=== PATIENT | male | born 1945 | race Two or more races ===

== ENCOUNTER → 2017-03-26 | Day surgery (SDC) | payer OTHER ==
[2017-03-24 16:45] LABS: Urine RBC None Seen /hpf (0 - 3)
[2017-03-24 17:14] LABS: Basophils # (auto) 0 uL; Basophils % (auto) 0.4 % (0.0-2.0); Eosinophils # (auto) 0.2 uL; Eosinophils % (auto) 2.7 % (0.0-7.0); Hematocrit 46.1 % (41.0-53.0); Hemoglobin 15.6 g/dL (13.5-17.5); Lymphocytes # (auto) 1.8 uL; Lymphocytes % (auto) 24.2 % (10.0-50.0); Mean Corpuscular Hemoglobin 28.3 pg (28.0-32.0); Mean Corpuscular Hgb Conc. 33.8 g/dL (32.0-36.0); Mean Corpuscular Volume 83.7 fL (80.0-100.0); Monocytes # (auto) 0.7 uL; Neutrophils # (auto) 4.8 uL; Neutrophils % (auto) 63.7 % (37.0-80.0); Platelet Count (auto) 252 10^3/uL (140-450); Red Cell Distribution Width 15.2 % (11.6-16.0); White Blood Cell 7.6 10^3/uL (4.4-10.8)
[2017-03-24 17:16] LABS: INR 1.04 (0.9-1.15); Partial Thromboplastin Time 29.2 sec (22.64-33.71); Prothrombin Time 11.2 sec (9.37-12.3)
[2017-03-24 17:20] LABS: Albumin 3.6 g/dL (3.4-5.0); BUN/Creatinine Ratio 22.7; Calcium 9.1 mg/dL (8.5-10.1); Potassium 3.9 mmol/L (3.5-5.1)
[2017-03-24 17:23] LABS: Bilirubin, Total 0.5 mg/dL (0.2-1.0); Total Protein 7.2 g/dL (6.4-8.2)
[2017-03-24 17:54] LABS: Urine Bilirubin Negative (Negative); Urine Blood Negative /uL (Negative); Urine Color Yellow (Yellow); Urine Glucose Normal (Normal); Urine Ketone Negative (Negative); Urine Mucus FEW (None Seen); Urine Nitrite Negative (Negative); Urine Urobilinogen Normal (Negative)
[~2017-03-26] VITALS: Ht 165.1 cm; Wt 77.1 kg
[~2017-03-26] MED LIST: ENAL2.5T PO; ENALAPRIL MALEATE 10 MG TAB PO SCH; ENALAPRIL MALEATE 2.5 MG TAB PO SCH; GLYCOPYRROLATE 0.2 MG/ML 1ML VIAL IV ONE; HYDROmorphone HCL 2 MG/ML VL IV PRN; MIDAZOLAM HCL 1MG/1ML-2 ML VIAL ONE; MINERAL OIL LIGHT TOPICAL 25 ML TOP ONE; NEOSTIGMINE 1 MG/ML INJ (10mg/10ML VIAL) IV ONE; ONDANSETRON HCL 4 MG/2 ML VIAL IV ONE; PROPOFOL 10 MG/ML 20 ML IV ONE; ROCURONIUM 10MG/ML 10ML VIAL IV ONE; SUCCINYLCHOLINE CHLORIDE 20 MG/ML 10ML VIAL IV ONE; ceFAZolin 1GM/50ML D5W 50 ML IV ONE; ePHEDrine SULFATE 50 MG/ML AMP IV PRN; fentaNYL CITRATE 100 MCG/2 ML VL ONE; hydrALAZINE HCL 20 MG/ML VL IV PRN
[2017-03-26 10:50] VITALS: BP 170/72
== END | disposition home or self-care (01) ==
LOC: SUR 05:57
PROVIDERS: ATTEND Urology
DX: C61 Malignant neoplasm of prostate (principal); I10 Essential (primary) hypertension; E03.9 Hypothyroidism, unspecified; I11.9 Hypertensive heart disease without heart failure
CPT/HCPCS: 36415; 55873; 80053; 81001; 85025; 85610; 85730; 87086; C2618; J0330; J0690; J2250; J2704; J3010

== ENCOUNTER 2017-04-02 08:50 | Emergency (ER) | payer OTHER ==
[~2017-04-02] VITALS: Ht 165.1 cm; Wt 83.0 kg
[~2017-04-02 08:50] MED LIST changes: -ENALAPRIL MALEATE 10 MG TAB PO SCH; -ENALAPRIL MALEATE 2.5 MG TAB PO SCH; -GLYCOPYRROLATE 0.2 MG/ML 1ML VIAL IV ONE; -HYDROmorphone HCL 2 MG/ML VL IV PRN; -MIDAZOLAM HCL 1MG/1ML-2 ML VIAL ONE; -MINERAL OIL LIGHT TOPICAL 25 ML TOP ONE; -NEOSTIGMINE 1 MG/ML INJ (10mg/10ML VIAL) IV ONE; -ONDANSETRON HCL 4 MG/2 ML VIAL IV ONE; -PROPOFOL 10 MG/ML 20 ML IV ONE; -ROCURONIUM 10MG/ML 10ML VIAL IV ONE; -SUCCINYLCHOLINE CHLORIDE 20 MG/ML 10ML VIAL IV ONE; -ceFAZolin 1GM/50ML D5W 50 ML IV ONE; -ePHEDrine SULFATE 50 MG/ML AMP IV PRN; -fentaNYL CITRATE 100 MCG/2 ML VL ONE; -hydrALAZINE HCL 20 MG/ML VL IV PRN
[2017-04-02 09:24] LABS: Urine Bilirubin Negative (Negative); Urine Color Yellow (Yellow); Urine Glucose Normal (Normal); Urine Ketone Negative (Negative); Urine Nitrite Negative (Negative); Urine RBC 2 /hpf (0 - 3); Urine Squamous Epithelial Cell FEW /hpf (<5); Urine Urobilinogen Normal (Negative); Urine pH 5.5 (5.0-8.0)
[2017-04-02 09:26] LABS: Urine Blood 2+ /uL (Negative)
[2017-04-02 09:46] LABS: Basophils # (auto) 0 uL; Basophils % (auto) 0.5 % (0.0-2.0); Eosinophils # (auto) 0.1 uL; Eosinophils % (auto) 1.8 % (0.0-7.0); Hemoglobin 15.1 g/dL (13.5-17.5); Lymphocytes # (auto) 1.6 uL; Mean Corpuscular Hemoglobin 28.5 pg (28.0-32.0); Mean Corpuscular Hgb Conc. 33.5 g/dL (32.0-36.0); Mean Corpuscular Volume 85.1 fL (80.0-100.0); Mean Platelet Volume 7.9 fL (7.4-10.4); Monocytes # (auto) 0.5 uL; Monocytes % (auto) 7.7 % (0.0-12.0); Neutrophils # (auto) 4.3 uL; Platelet Count (auto) 237 10^3/uL (140-450); Red Cell Distribution Width 15.3 % (11.6-16.0); White Blood Cell 6.5 10^3/uL (4.4-10.8)
[2017-04-02 09:55] LABS: Albumin 3.2 g/dL (3.4-5.0); BUN/Creatinine Ratio 20.3; Bilirubin, Total 0.5 mg/dL (0.2-1.0); Calcium 9.4 mg/dL (8.5-10.1); Potassium 4.2 mmol/L (3.5-5.1); Total Protein 6.8 g/dL (6.4-8.2)
[2017-04-02 11:18] VITALS: BP 165/74
== END 2017-04-02 11:21 | disposition home or self-care (01) ==
LOC: ER 08:50
DX: N50.3 Cyst of epididymis (principal); N39.0 Urinary tract infection, site not specified; I10 Essential (primary) hypertension; Z79.899 Other long term (current) drug therapy
CPT/HCPCS: 36415; 76870; 80053; 81001; 85025

== ENCOUNTER 2018-12-30 06:21 | Inpatient (IN) | payer OTHER | END 2018-12-31 13:22 | disposition home or self-care (01) | LOC: ER 06:21 → TELE 16:08 → TELE-EAST 20:12 | DX: J18.9 Pneumonia, unspecified organism (principal); R07.9 Chest pain, unspecified; Z85.46 Personal history of malignant neoplasm of prostate ==

== ENCOUNTER 2020-05-14 10:44 | Inpatient (IN) | payer OTHER ==
[~2020-05-14] VITALS: Ht 170.2 cm; Wt 115.4 kg
[~2020-05-14 10:44] MED LIST changes: -ENAL2.5T PO; +ENAL2.5T7 PO; +LEVO500T21 PO
[2020-05-14] MEDS ORDERED: methylPREDNISolone SOD SUCC 125 MG/2 ML VL IV ONE ×2 (11:15→13:15)
[2020-05-14] MEDS ORDERED: ZINC SULFATE 220mg CAP or TAB PO ONE (11:15)
[2020-05-14] MEDS ORDERED: AZITHROMYCIN 500MG/ 250ML 250 ML IV ONE (11:15)
[2020-05-14] MEDS ORDERED: ASCORBIC ACID 500 MG TAB PO ONE (11:15)
[2020-05-14] MEDS ORDERED: ACETAMINOPHEN 500 MG TAB PO ONE ×2 (11:26→11:30)
[2020-05-14] MEDS ORDERED: ACETAMINOPHEN 325 MG TAB PO ONE (11:30)
[2020-05-14] MEDS: MIDAZOLAM DRIP 50 mg/50mL 50 ML IV SCH (11:33)
[2020-05-14] MEDS ORDERED: SUCCINYLCHOLINE CHLORIDE 20 MG/ML 10ML VIAL IV ONE ×2 (11:35→11:45)
[2020-05-14] MEDS ORDERED: ETOMIDATE (2MG/ML) 20ML VIAL IV ONE ×2 (11:35→11:45)
[2020-05-14] MEDS ORDERED: MIDAZOLAM DRIP 50 mg/50mL 50 ML IV ONE (11:36)
[2020-05-14 11:48] LABS: Hemoglobin 13.6 g/dL (13.5-17.5)
[2020-05-14 11:50] LABS: Hematocrit 43.5 % (41.0-53.0); Mean Corpuscular Hemoglobin 24.6 pg (28.0-32.0); Mean Corpuscular Hgb Conc. 31.2 g/dL (32.0-36.0); Mean Corpuscular Volume 78.7 fL (80.0-100.0); Platelet Count (auto) 343 10^3/uL (140-450); Red Blood Cells 5.53 10^6/uL (4.5-5.90); Red Cell Distribution Width 19.1 % (11.8-14.3); White Blood Cell 27.4 10^3/uL (4.4-10.8)
[2020-05-14] MEDS ORDERED: PROPOFOL 100 ML IV ONE (11:51)
[2020-05-14 11:54] LABS: Basophils % (manual) 0 (0.0-2.0); Blast Cells 0; Eosinophils % (manual) 0 (0-7); Metamyelocytes % 0; Myelocytes % 0; Promyelocytes % 0; Reactive Lymphocytes 0
[2020-05-14 12:00] VITALS: BP 85/46
[2020-05-14] MEDS: NOREPINEPHRINE 8 MG/250ML KIT 250 ML IV SCH (12:00)
[2020-05-14] MEDS ORDERED: NOREPINEPHRINE 8 MG/250ML KIT 250 ML IV ONE (12:02)
[2020-05-14 12:09] LABS: Lactic Acid w/Reflex 9.8 mmol/L (0.4-2.0)
[2020-05-14 12:21] LABS: Chloride 103 mmol/L (98-107); Potassium 3.6 mmol/L (3.5-5.1); Sodium 133 mmol/L (136-145)
[2020-05-14 12:27] LABS: Band Neutrophils % (manual) 3; Lymphocytes % (manual) 1 (10.0-50.0); Monocytes % (manual) 1 (0-12)
[2020-05-14] MEDS: PROPOFOL 100 ML IV SCH (12:28)
[2020-05-14 12:32] LABS: Alanine Aminotransferase 17 U/L (16-61); Albumin 2.7 g/dL (3.4-5.0); Alkaline Phosphatase 114 U/L (45-117); Anion Gap 15 (5-15); Aspartate Aminotransferase 26 U/L (15-37); BUN/Creatinine Ratio 16.1; Bilirubin, Total 0.8 mg/dL (0.2-1.0); Blood Urea Nitrogen 25 mg/dL (7-18); Calcium 9.5 mg/dL (8.5-10.1); Carbon Dioxide 15 mmol/L (21-32); GFR African American 57 mL/min; GFR Non-African American 47 mL/min; Glucose 186 mg/dL (74-106); Lactate Dehydrogenase 404 U/L (87-241); Total Protein 7.7 g/dL (6.4-8.2)
[2020-05-14] MEDS ORDERED: SODIUM BICARBONATE 8.4 % INJ 50ML VIAL IV ONE (12:45)
[2020-05-14 12:52] LABS: CRP High Sensitivity > 19 mg/dL (< 0.3)
[2020-05-14] MEDS ORDERED: ENOXAPARIN SOD 100 MG/1 ML SYRINGE SC ONE (13:15)
[2020-05-14] MEDS ORDERED: LORazepam 2MG/ML-1ML VIAL IV PRN (13:15)
[2020-05-14] MEDS ORDERED: LACTATED RINGER'S 1,000 ML IV ONE (13:15)
[2020-05-14] MEDS ORDERED: MORPHINE SULF INJ 2 MG/ML SYRINGE 1ML IV PRN (13:15)
[2020-05-14] MEDS ORDERED: SODIUM CHLORIDE 0.9% 2,000 ML IV ONE (13:15)
[2020-05-14] MEDS ORDERED: NITROGLYCERIN 0.4 MG SL TAB SL PRN (13:15)
[2020-05-14] MEDS ORDERED: VANCOMYCIN PER PHARMACY 0 MG IV SCH (13:15)
[2020-05-14] MEDS ORDERED: MORPHINE SULFATE 4 MG/ML SYR/VIAL IV PRN (13:15)
[2020-05-14] MEDS ORDERED: VANCOMYCIN 1GM/250ML 250 ML IV ONE (13:30)
[2020-05-14 13:36] LABS: Urine Amorphous Crystal MOD /hpf (None Seen); Urine Bacteria FEW /hpf (None Seen); Urine Blood Negative /uL (Negative); Urine Hyaline Cast MANY /lpf (0 - 2); Urine Mucus FEW (None Seen); Urine Specific Gravity 1.019 (1.001-1.035); Urine WBC 4 /hpf (0 - 3)
[2020-05-14 14:08] VITALS: BP 79/42
[2020-05-14] MEDS ORDERED: methylPREDNISolone SOD SUCC 40 MG/ML VL IV ONE (14:45)
[2020-05-14] MEDS ORDERED: ACETAMINOPHEN 650 mg PER 20 mL UD PO ONE (14:45)
[2020-05-14] MEDS ORDERED: diphenhdrAMINE HCL 50 MG/1 ML VL IV ONE (14:45)
[2020-05-14] MEDS ORDERED: TOCILIZUMAB 400 MG in SODIUM CHL 0.9% 80 ML IV ONE (15:00)
[2020-05-14 16:05] VITALS: BP 103/52
[2020-05-14] MEDS ORDERED: ACETAMINOPHEN 650 mg PER 20 mL UD GT PRN (16:15)
[2020-05-14 17:02] LABS: Cholesterol 83 mg/dL (< 200)
[2020-05-14 17:09] LABS: HDL Cholesterol 26 mg/dL (40-59); LDL Cholesterol 39 mg/dL (< 100); Triglycerides 102 mg/dL (< 150)
[2020-05-14] MEDS ORDERED: ATOR10TA52 PO (17:18)
[2020-05-14] MEDS ORDERED: CLO01T PO (17:18)
[2020-05-14] MEDS ORDERED: METH5T PO (17:18)
[2020-05-14] MEDS ORDERED: ENAL20TA8 PO (17:18)
[2020-05-14] MEDS ORDERED: AMLO10TA13 PO (17:18)
[2020-05-14] MEDS ORDERED: HYDR25TA4 PO (17:18)
[2020-05-14] MEDS: SODIUM CHLORIDE 0.9% 1,000 ML IV SCH (17:47)
[2020-05-14] MEDS: FUROSEMIDE 20 MG/2 ML VIAL IV SCH (17:47)
[2020-05-14] MEDS: HYDROCORTISONE SOD SUCC 100 MG/2ML INJ VIAL IV SCH (17:47)
[2020-05-14] MEDS: PIPERACILLIN-TAZOB 3.375GM 100 ML IV SCH (17:47)
[2020-05-14 18:35] VITALS: BP 114/54
[2020-05-14 20:15] VITALS: BP 125/53
[2020-05-14 22:03] VITALS: BP 130/61
[2020-05-14 22:22] LABS: INR 1.13 (0.9-1.15); Partial Thromboplastin Time 40.7 sec (23.64-32.05)
[2020-05-15] VITALS (97 sets, daily range): BP systolic 84–133; BP diastolic 38–71
--- NOTE | 2020-05-15 01:13 | NUR ---
PT ETT TO VENT, SETTINGS AC14/TV500/FIO2 60%/PEEP8, POX 88-90%, PT DOES NOT TOLERATE LAYING FLAT. HOB UP TO 45DEGREES, POX IMPROVED TO 92%. SR ON THE MONITOR, HR 60'S. CL ON LT FEM TL, INTACT AND PATENT, INFUSING VERSED, PROPOFOL, AND LEVOPHED. OGT ON LIS W/ BLUE GREEN CONTENTS, PLACEMENT CHECKED. WALTON CATHETER DRAINING LIGHT MARCIAL URINE VIA GRAVITY. NO CURRENT BM. SCD PLACED BLE. SAFETY PRECAUTIONS IN PLACE. WILL CONTINUE TO MONITOR.
[2020-05-15] MEDS: ENOXAPARIN SOD 100 MG/1 ML SYRINGE SC SCH ×3 (02:17→22:00)
[2020-05-15] MEDS: FAMOTIDINE (10MG/ML) 2ML VL IV SCH ×2 (02:17→09:21)
[2020-05-15] MEDS: PIPERACILLIN-TAZOB 3.375GM 100 ML IV SCH ×4 (02:18→17:35)
[2020-05-15] MEDS: HYDROCORTISONE SOD SUCC 100 MG/2ML INJ VIAL IV SCH ×3 (02:18→12:35)
[2020-05-15] MEDS: NOREPINEPHRINE 8 MG/250ML KIT 250 ML IV SCH (02:53)
--- NOTE | 2020-05-15 03:30 | NUR ---
WARMER PLACED ON PT, RECTAL TEMP 96.1, PT TOLERATING WELL, WILL REASSESS SHORTLY.
[2020-05-15] MEDS: MIDAZOLAM DRIP 50 mg/50mL 50 ML IV SCH ×3 (04:59→22:15)
--- NOTE | 2020-05-15 05:45 | NUR ---
PT TEMP IMPROVING, RECTAL TEMP 97.3, PT TOLERATING WELL. SAFETY PRECAUTIONS IN PLACE. WILL CONTINUE TO MONITOR.
[2020-05-15 05:51] LABS: Basophils # (auto) 0.1 10 ^3/uL (0-0.2); Eosinophils # (auto) 0 10 ^3/uL (0-0.8)
[2020-05-15 05:53] LABS: Basophils % (auto) 0.3 % (0.0-2.0); Hematocrit 41.7 % (41.0-53.0); Hemoglobin 13.1 g/dL (13.5-17.5); Lymphocytes # (auto) 0.7 10 ^3/uL (0.4-5.4); Lymphocytes % (auto) 2.7 % (10.0-50.0); Mean Corpuscular Hemoglobin 24.5 pg (28.0-32.0); Mean Corpuscular Hgb Conc. 31.6 g/dL (32.0-36.0); Mean Corpuscular Volume 77.8 fL (80.0-100.0); Monocytes # (auto) 0.7 10 ^3/uL (0-1.3); Monocytes % (auto) 2.5 % (0.0-12.0); Neutrophils # (auto) 24.3 10 ^3/uL (1.6-8.6); Neutrophils % (auto) 94.5 % (37.0-80.0); Platelet Count (auto) 327 10^3/uL (140-450); Red Blood Cells 5.36 10^6/uL (4.5-5.90); Red Cell Distribution Width 19.4 % (11.8-14.3); White Blood Cell 25.7 10^3/uL (4.4-10.8)
[2020-05-15 06:10] LABS: BUN/Creatinine Ratio 23.6; Calcium 8.5 mg/dL (8.5-10.1); Potassium 3.7 mmol/L (3.5-5.1)
--- NOTE | 2020-05-15 06:40 | NUR ---
Respiratory note: RECEIVED PT FROM AUTISTIC TEACHER ON VENT V-19 PLUGGED INTO RED OUTLET. ALL VENT ALARMS ARE AUDIBLE, AND FUNCTIONING. AMBU BAG/MASK IS AT BEDSIDE CONNECTED TO AN O2 SOURCE. ETT IS 8.0 @ THE 24 LIP LINE SECURED WITH A PARMINDER. MOVED ETT FROM LEFT, TO CENTER. NO ORAL/SKIN BREAK DOWN NOTED. BS ARE DIMINISHED BILATERALLY. SX FOR NO RETURN. NO GAG REFLEX NOTED. PT IS WARM/DRY TO THE TOUCH. NO EDEMA NOTED. NO NEW VENT CHANGES ORDERED AT THIS TIME. WILL CONTINUE TO MONITOR PT. CHARTING COMPLETE FROM OUTSIDE OF PT ROOM DUE TO COVID-19 PRECAUTIONS/PROTOCOL
[2020-05-15] MEDS: SODIUM CHLORIDE 0.9% 1,000 ML IV SCH ×2 (06:50→17:35)
[2020-05-15] MEDS: FUROSEMIDE 20 MG/2 ML VIAL IV SCH ×2 (07:02→17:35)
[2020-05-15] MEDS: PROPOFOL 100 ML IV SCH ×2 (07:14→20:15)
--- NOTE | 2020-05-15 07:55 | NUR ---
FAMILY Received phone call from patients daughter Kesha, correct password provided and updated on patient condition.
[2020-05-15] MEDS ORDERED: methylPREDNISolone SOD SUCC 40 MG/ML VL IV ONE (09:15)
[2020-05-15] MEDS ORDERED: diphenhdrAMINE HCL 50 MG/1 ML VL IV ONE (09:15)
[2020-05-15] MEDS ORDERED: ACETAMINOPHEN 650 mg PER 20 mL UD GT ONE (09:15)
[2020-05-15] MEDS ORDERED: TOCILIZUMAB 400 MG in SODIUM CHL 0.9% 80 ML IV ONE (09:30)
--- NOTE | 2020-05-15 10:30 | NUR ---
TEMPERATURE Patients tawanda hugger turned off secondary to patients rectal temperature 98.4. Will continue to monitor patients temperature.
--- NOTE | 2020-05-15 10:55 | NUR ---
FAMILY Patients daughter Kesha, correct password given and updated on patient condition.
--- NOTE | 2020-05-15 11:15 | NUR ---
WOUND CARE NOTE: ADDED PATIENT TO SKIN INTEGRITY MONITORING D/T PATIENT'S INTUBATION STATUS. PATIENT ADMITTED TO [facility] WITH DIAGNOSIS OF SEPTIC SHOCK. PATIENT IS COVID 19 POSITIVE. CURRENT KANDIS SCORE IS 10. PATIENT IS INTUBATED, SEDATED. HE IS CURRENTLY WOUND FREE, RESTING ON ICU LOW AIRLOSS BED. RECOMMEND: FREQUENT TURN SCHEDULE Q 2 HOURS, PRN CONDITION PERMITS, WITH PRESSURE REDISTRIBUTION USING PILLOWS/WEDGES, BID/PRN APPLICATION MOISTURE BARRIER CREAM, OPTIFOAM GENTLE SACRAL DRESSING PREVENTATIVE, SKIN/WOUND CARE PLAN, DIETARY CONSULT FOR INTUBATION/IMMOBILITY, CONTINUED MONITORING BY WOUND CARE TEAM.
[2020-05-15] MEDS ORDERED: VANCOMYCIN 1GM/250ML 250 ML IV SCH (16:00)
--- NOTE | 2020-05-15 17:15 | NUR ---
FAMILY Received phone call from Nery, Patients daughter, correct password provided and updated on patient condition.
--- NOTE | 2020-05-15 18:35 | NUR ---
RT NOTE RECEIVED PT INTUBATED AND ON VENT V19 ON STATED SETTINGS. VENT IS PLUGGED TO RED OUTLET. ALARMS ARE ON AND AUDIBLE AT NURSING STATION. AMBU BAG AT BEDSIDE AND CONNECTED TO O2 SOURCE. 8.0 ETT IS SECURED WITH ANCHORFAST WITH BITE-BLOCK AT 24 CM TO THE ORAL RIGHT. BS ARE CLEAR BILATERALLY. PT HAS A PT WAS SUCTIONED FOR SCANT RETURN FROM ETT AND MODERATE RETURN ORALLY. RT ENTERED WITH ALL PROPER PPE FOR COVID STATUS. CONT ORDERED. PT TEMP 98.6, POX 93% Addendum: 05/15/20 at 1845 by Cristina Gloria RT Amended: Links added.
--- NOTE | 2020-05-15 19:05 | NUR ---
MD Dr. Mcdonald at bedside updated on patient condition with new orders, this RN to input into system.
--- NOTE | 2020-05-15 19:05 | NUR ---
Report received from JOSÉ Bryson. Patient intubated with ETT 8.0 at 24 CM L/L. Vent settings: AC 14, Vt 500, FiO2 60%, PEEP 5. Patient on IVF: NS 1000 ml at 75 ml/hr; Propofol 9.978 mcg/kg/min (5.43 ml/hr); Versed 15 mg/hr (15 ml/hr); Levophed 9.978 mcg/min (7.5 ml/hr). Will continue with POC; and, will continue to monitor VS, RASDS, clinical status.
--- NOTE | 2020-05-15 20:15 | NUR ---
Propofol bottle exchanged to new bottle.
--- NOTE | 2020-05-15 20:25 | NUR ---
RT NOTE ROUTINE VENT CHECK DONE. PT INTUBATED AND ON VENT V19 ON STATED SETTINGS. VENT IS PLUGGED TO RED OUTLET. ALARMS ARE ON AND AUDIBLE AT NURSING STATION. AMBU BAG AT BEDSIDE AND CONNECTED TO O2 SOURCE. 8.0 ETT IS SECURED WITH ANCHORFAST WITH BITE-BLOCK AT 24 CM TO THE ORAL RIGHT.CONT ORDERED. PT TEMP 98.8, POX 92% Addendum: 05/15/20 at 2027 by Cristina Gloria RT Amended: Links added.
--- NOTE | 2020-05-15 21:00 | NUR ---
Propofol increase to 14.99 mcg/kg/min (8.16 ml/hr) due to patient over-riding vent 24-25 breaths/min.
--- NOTE | 2020-05-15 22:16 | NUR ---
RT NOTE ROUTINE VENT CHECK DONE. PT INTUBATED AND ON VENT V19 ON STATED SETTINGS. VENT IS PLUGGED TO RED OUTLET. ALARMS ARE ON AND AUDIBLE AT NURSING STATION. AMBU BAG AT BEDSIDE AND CONNECTED TO O2 SOURCE. 8.0 ETT IS SECURED WITH ANCHORFAST WITH BITE-BLOCK AT 24 CM TO THE ORAL RIGHT.CONT ORDERED. JOSÉ ALVAREZ AT BEDSIDE. PT TEMP 99.1, POX 93% Addendum: 05/15/20 at 2220 by Cristina Gloria RT Amended: Links added.
--- NOTE | 2020-05-15 23:00 | NUR ---
Propofol increase to 19.99 mcg/kg/min (10.88 ml/hr) due to patient over-riding vent 20-30's.
[2020-05-16] VITALS (106 sets, daily range): BP systolic 93–120; BP diastolic 23–61
--- NOTE | 2020-05-16 00:10 | NUR ---
RT NOTE ROUTINE VENT CHECK DONE. PT INTUBATED AND ON VENT V19 ON STATED SETTINGS. VENT IS PLUGGED TO RED OUTLET. ALARMS ARE ON AND AUDIBLE AT NURSING STATION. AMBU BAG AT BEDSIDE AND CONNECTED TO O2 SOURCE. 8.0 ETT IS SECURED WITH ANCHORFAST WITH BITE-BLOCK AT 24 CM TO THE ORAL RIGHT. CONT ORDERED. JOSÉ ALVAREZ AT BEDSIDE. PT TEMP 99.1, POX 93% Addendum: 05/16/20 at 0047 by Cristina Gloria RT Amended: Links added.
--- NOTE | 2020-05-16 02:15 | NUR ---
Propofol increase to 24.99 mcg/kg/min (13.6 ml/hr) due to patient over-riding vent 22-23.
--- NOTE | 2020-05-16 02:36 | NUR ---
RT NOTE ROUTINE VENT CHECK DONE. PT INTUBATED AND ON VENT V19 ON STATED SETTINGS. VENT IS PLUGGED TO RED OUTLET. ALARMS ARE ON AND AUDIBLE AT NURSING STATION. AMBU BAG AT BEDSIDE AND CONNECTED TO O2 SOURCE. 8.0 ETT IS SECURED WITH ANCHORFAST WITH BITE-BLOCK AT 24 CM TO THE ORAL LEFT.CONT ORDERED. HME AND INLINE SUCTION CHANGED WITHOUT INCIDENT. PT TEMP 99.5, POX 93% Addendum: 05/16/20 at 0237 by Cristina Gloria RT Amended: Links added.
[2020-05-16] MEDS: MIDAZOLAM DRIP 50 mg/50mL 50 ML IV SCH ×2 (03:10→07:29)
--- NOTE | 2020-05-16 03:50 | NUR ---
Customer Agent outside of room. Glass Curvature Gauger collects am blood draw from CVC TLC site. Specimens given to Customer Agent and specimens sent to lab.
--- NOTE | 2020-05-16 03:58 | NUR ---
RT NOTE ROUTINE VENT CHECK DONE. PT INTUBATED AND ON VENT V19 ON STATED SETTINGS. VENT IS PLUGGED TO RED OUTLET. ALARMS ARE ON AND AUDIBLE AT NURSING STATION. AMBU BAG AT BEDSIDE AND CONNECTED TO O2 SOURCE. 8.0 ETT IS SECURED WITH ANCHORFAST WITH BITE-BLOCK AT 24 CM TO THE ORAL LEFT.CONT ORDERED. PT TEMP 99.5, POX 92% Addendum: 05/16/20 at 0413 by Cristina Gloria RT Amended: Links added.
[2020-05-16 04:49] LABS: Eosinophils # (auto) 0 10 ^3/uL (0-0.8); Hemoglobin 12.5 g/dL (13.5-17.5); Lymphocytes # (auto) 0.3 10 ^3/uL (0.4-5.4); Mean Corpuscular Hemoglobin 24.3 pg (28.0-32.0); Red Blood Cells 5.12 10^6/uL (4.5-5.90); Red Cell Distribution Width 19.4 % (11.8-14.3)
[2020-05-16 04:52] LABS: Basophils # (auto) 0.1 10 ^3/uL (0-0.2); Basophils % (auto) 0.3 % (0.0-2.0); Hematocrit 39.8 % (41.0-53.0); Lymphocytes % (auto) 1.4 % (10.0-50.0); Mean Corpuscular Hgb Conc. 31.3 g/dL (32.0-36.0); Mean Corpuscular Volume 77.7 fL (80.0-100.0); Monocytes # (auto) 0.6 10 ^3/uL (0-1.3); Monocytes % (auto) 2.5 % (0.0-12.0); Neutrophils # (auto) 21.5 10 ^3/uL (1.6-8.6); Neutrophils % (auto) 95.8 % (37.0-80.0); Nucleated Red Blood Cells % 0.2 %; Platelet Count (auto) 311 10^3/uL (140-450); White Blood Cell 22.4 10^3/uL (4.4-10.8)
--- NOTE | 2020-05-16 05:04 | NUR ---
PCXR done at bedside. Addendum: 05/16/20 at 0517 by Chace Prince RN CORRECTION: PCXR not done.
[2020-05-16 05:12] LABS: Calcium 8.8 mg/dL (8.5-10.1); Potassium 3.8 mmol/L (3.5-5.1)
[2020-05-16 05:21] LABS: BUN/Creatinine Ratio 23.6
[2020-05-16] MEDS: PIPERACILLIN-TAZOB 3.375GM 100 ML IV SCH ×3 (06:01→12:21)
[2020-05-16] MEDS: FUROSEMIDE 20 MG/2 ML VIAL IV SCH ×2 (06:01→18:00)
[2020-05-16] MEDS: PROPOFOL 100 ML IV SCH ×2 (06:02→12:21)
--- NOTE | 2020-05-16 08:45 | NUR ---
RADIOLOGY Radiology technicians at bedside to obtain chest x-ray.
[2020-05-16] MEDS: FAMOTIDINE (10MG/ML) 2ML VL IV SCH (09:44)
[2020-05-16] MEDS: ENOXAPARIN SOD 100 MG/1 ML SYRINGE SC SCH ×2 (09:44→22:10)
--- NOTE | 2020-05-16 09:45 | NUR ---
FAMILY Received phone call from patients daughter Nery, correct password provided and updated on patient condition.
[2020-05-16] MEDS ORDERED: DexAMETHasone SOD PHOS 4 MG/1ML SDV INJ IV SCH (10:00)
[2020-05-16] MEDS: NOREPINEPHRINE 8 MG/250ML KIT 250 ML IV SCH (12:05)
[2020-05-16] MEDS: SODIUM CHLORIDE 0.9% 1,000 ML IV SCH (13:30)
--- NOTE | 2020-05-16 14:30 | NUR ---
Nutrition Assessment Notes Please refer to link for full assessment notes. Est Energy needs: 8019-2703 kcals (17-20 kcal/kgBW) Est Protein needs: 73-92 gms/day (0.8-1.0 gm/kgBW) Will continue to monitor and reassess prn. Addendum: 05/16/20 at [address] Amended: Links added.
--- NOTE | 2020-05-16 17:00 | NUR ---
FAMILY Received phone call from patients daughter Nery, correct password provided and updated given on patient.
--- NOTE | 2020-05-16 17:15 | NUR ---
MD Dr. Yuen at bedside updated on patient condition with new orders, this RN to input into system.
[2020-05-16] MEDS ORDERED: AZITHROMYCIN 500MG/ 250ML 250 ML IV SCH (17:45)
--- NOTE | 2020-05-16 18:09 | NUR ---
Respiratory note: NEW VENT ORDERS GIVEN PER DR. COLLADO, INCREASED PEEP FROM 8 CMH20 TO 10 CMH20. PT TOLERATING WELL, ABG IN AM. VENT CHECK DONE FROM INSIDE PT ROOM IN FULL PPE. WILL CONTINUE TO MONITOR.
--- NOTE | 2020-05-16 19:30 | NUR ---
Opening Shift Note Received pt on mechanical ventilator. Sedated on propofol and versed infusing through tlc to left femoral central. See IV spreadsheet for details. Pt does not open eyes. Hypoactive cough/gag. Full assessment done, see interventions. Muro catheter draining clear yellow urine, free of kinks and secured below bladder. Pt on airborne precautions for COVID-19 infection. Bed locked in lowest position. Pt in full view of RN.
--- NOTE | 2020-05-16 20:10 | NUR ---
DR. LORA in unit, updated on pt status. No orders received.
[2020-05-16] MEDS: AZITHROMYCIN 500MG/ 250ML 250 ML IV SCH (22:10)
[2020-05-17] VITALS (82 sets, daily range): BP systolic 88–186; BP diastolic 44–74
--- NOTE | 2020-05-17 00:30 | NUR ---
Family pt's daughter phones, updated on pt status. All questions and concerns addressed at this time
[2020-05-17 04:31] LABS: Basophils # (auto) 0 10 ^3/uL (0-0.2); Basophils % (auto) 0.1 % (0.0-2.0); Eosinophils # (auto) 0 10 ^3/uL (0-0.8); Hematocrit 39.1 % (41.0-53.0); Hemoglobin 12.3 g/dL (13.5-17.5); Lymphocytes # (auto) 0.4 10 ^3/uL (0.4-5.4); Lymphocytes % (auto) 3.1 % (10.0-50.0); Mean Corpuscular Hemoglobin 24.8 pg (28.0-32.0); Mean Corpuscular Hgb Conc. 31.5 g/dL (32.0-36.0); Mean Corpuscular Volume 78.5 fL (80.0-100.0); Monocytes # (auto) 0.6 10 ^3/uL (0-1.3); Monocytes % (auto) 4.4 % (0.0-12.0); Neutrophils # (auto) 13.4 10 ^3/uL (1.6-8.6); Neutrophils % (auto) 92.4 % (37.0-80.0); Nucleated Red Blood Cells % 0.4 %; Platelet Count (auto) 311 10^3/uL (140-450); Red Blood Cells 4.98 10^6/uL (4.5-5.90); Red Cell Distribution Width 19.9 % (11.8-14.3); White Blood Cell 14.5 10^3/uL (4.4-10.8)
[2020-05-17 04:52] LABS: Potassium 4.6 mmol/L (3.5-5.1)
[2020-05-17 04:59] LABS: BUN/Creatinine Ratio 31.7; Calcium 8.6 mg/dL (8.5-10.1)
--- NOTE | 2020-05-17 05:00 | NUR ---
Cares Pt given bed bath and partial linen change at this time. Pt tolerated well
[2020-05-17] MEDS: FUROSEMIDE 20 MG/2 ML VIAL IV SCH ×2 (06:17→17:37)
[2020-05-17] MEDS: MIDAZOLAM DRIP 50 mg/50mL 50 ML IV SCH ×2 (07:24→08:27)
--- NOTE | 2020-05-17 08:00 | NUR ---
OPEN RECEIVED REPORT FROM NIGHT RN. ASSUME CARE OF ICU PATIENT, FULL CODE ON VENTILATOR AT THIS TIME. SEE VICE PRESIDENT DIGITAL STRATEGIST AND IV FLOW SHEET FOR FURTHER PATIENT INFORMATION. CONTINUE CARE.
[2020-05-17] MEDS: ENOXAPARIN SOD 100 MG/1 ML SYRINGE SC SCH ×2 (09:52→22:00)
[2020-05-17] MEDS: FAMOTIDINE (10MG/ML) 2ML VL IV SCH (09:52)
[2020-05-17] MEDS: DexAMETHasone SOD PHOS 10MG/1ML VIAL INJ IV SCH (09:52)
--- NOTE | 2020-05-17 13:10 | NUR ---
CALLED Pushpa CASIANO FOR ORDERS CURRENT BP[ 187/74, HR 77. ORDERS GIVEN TO GIVE HYDRALAZINE 10 MG IVP X1 NOW, SEE EMAR FOR TIME GIVEN. CONTINUE CARE. Addendum: 05/17/20 at 1433 by Mounika Dempsey RN REASSESS BP 143/56 AT THIS TIME. CONTINUE CARE.
[2020-05-17] MEDS ORDERED: hydrALAZINE HCL 20 MG/ML VL IV ONE (13:15)
[2020-05-17] MEDS ORDERED: hydrALAZINE HCL 20 MG/ML VL ONE (13:18)
[2020-05-17] MEDS ORDERED: cloNIDine HCL 0.1 MG TAB PO PRN (13:30)
[2020-05-17] MEDS: PROPOFOL 100 ML IV SCH ×2 (13:34→19:56)
--- NOTE | 2020-05-17 14:35 | NUR ---
Respiratory note: ROUTINE VENT CHECK. INCREASED FIO2 TO 65% PT'S SATS ARE BETWEEN 87-90%. BREATH SOUNDS ARE CLEAR/DIMINISHED, SUCTION SCANT CLEAR SECRETIONS. RN AWARE OF CHANGES.
--- NOTE | 2020-05-17 15:19 | NUR ---
DAUGHTER CALLED: UPDATED FAMILY CALLED AT THIS TIME. UPDATED HER ON PT'S CURRENT STATUS, HEMODYNAMICS AND CURRENT POC. FAMILY TO CALL BACK LATER ON TONIGHT. CONTINUE CARE.
--- NOTE | 2020-05-17 15:21 | NUR ---
DR. ANDERSON AT BEDSIDE: ORDERS MD AT BEDSIDE ASSESSING PATIENT AT THIS TIME. INFORMED MD ON PT'S CURRENT STATUS, TRENDING HEMODYNAMICS AND POC AT THIS TIME. WILL CARRY OUT ANY ORDERS GIVEN. CONTINUE CARE.
[2020-05-17] MEDS: METOPROLOL TARTRATE 25 MG TAB PO SCH (22:00)
[2020-05-17] MEDS: AZITHROMYCIN 500MG/ 250ML 250 ML IV SCH (22:00)
[2020-05-18] VITALS (98 sets, daily range): BP systolic 87–127; BP diastolic 44–63
--- NOTE | 2020-05-18 04:00 | NUR ---
Cares bed bath done, Skin assessment done; no new changes, repositioned pt and tolerated well
[2020-05-18 06:04] LABS: Basophils # (auto) 0 10 ^3/uL (0-0.2); Eosinophils # (auto) 0 10 ^3/uL (0-0.8); Eosinophils % (auto) 0.1 % (0.0-7.0); Monocytes # (auto) 0.4 10 ^3/uL (0-1.3)
[2020-05-18 06:06] LABS: Basophils % (auto) 0.2 % (0.0-2.0); Hematocrit 38.5 % (41.0-53.0); Hemoglobin 12.1 g/dL (13.5-17.5); Lymphocytes # (auto) 0.5 10 ^3/uL (0.4-5.4); Lymphocytes % (auto) 5.7 % (10.0-50.0); Mean Corpuscular Hemoglobin 24.9 pg (28.0-32.0); Mean Corpuscular Hgb Conc. 31.4 g/dL (32.0-36.0); Mean Corpuscular Volume 79.3 fL (80.0-100.0); Monocytes % (auto) 4.5 % (0.0-12.0); Neutrophils # (auto) 7.2 10 ^3/uL (1.6-8.6); Neutrophils % (auto) 89.5 % (37.0-80.0); Nucleated Red Blood Cells % 0.3 %; Platelet Count (auto) 237 10^3/uL (140-450); Red Blood Cells 4.86 10^6/uL (4.5-5.90); Red Cell Distribution Width 19.8 % (11.8-14.3); White Blood Cell 8.1 10^3/uL (4.4-10.8)
[2020-05-18 06:37] LABS: BUN/Creatinine Ratio 39.8; Calcium 8.5 mg/dL (8.5-10.1); Potassium 4.6 mmol/L (3.5-5.1)
[2020-05-18 06:42] LABS: INR 1.09 (0.9-1.15); Partial Thromboplastin Time 33.9 sec (23.64-32.05)
--- NOTE | 2020-05-18 07:24 | NUR ---
End of shift care endorsed to Chaz KUMAR
--- NOTE | 2020-05-18 07:30 | NUR ---
ASSUMING CARE, PATIENT INTUBATED/SEDATED ON ISOLATION FOR COVID 19.
[2020-05-18] MEDS: NOREPINEPHRINE 8 MG/250ML KIT 250 ML IV SCH (08:00)
[2020-05-18] MEDS: FUROSEMIDE 20 MG/2 ML VIAL IV SCH (08:22)
--- NOTE | 2020-05-18 08:30 | NUR ---
ASSESSMENT COMPLETED SEE INTERVENTIONS.
[2020-05-18] MEDS ORDERED: FUROSEMIDE 20 MG/2 ML VIAL IV ONE (09:00)
--- NOTE | 2020-05-18 09:20 | NUR ---
DR COLLADO AT BEDSIDE, NEW ORDERS RECEIVED. DR AWARE OF ABG RESULTS, RN/RT RECOMMENDED CHANGING RATE ON VENTILATOR BUT ORDER NOT RECEIVED.
[2020-05-18] MEDS: METOPROLOL TARTRATE 25 MG TAB PO SCH ×2 (10:00→22:00)
[2020-05-18] MEDS: LISINOPRIL 20 MG TAB GT SCH (10:00)
--- NOTE | 2020-05-18 10:00 | NUR ---
UPDATED DTR ON PLAN OF CARE AFTER OBTAINING CORRECT PASSWORD, ALL QUESTIONS/CONCERNS ADDRESSED
--- NOTE | 2020-05-18 10:05 | NUR ---
Respiratory note: TITRATED FIO2 TO 55%, JOSÉ DUVAL INFORMED.
[2020-05-18] MEDS: FAMOTIDINE (10MG/ML) 2ML VL IV SCH (10:25)
[2020-05-18] MEDS: DexAMETHasone SOD PHOS 10MG/1ML VIAL INJ IV SCH (10:25)
[2020-05-18] MEDS: ENOXAPARIN SOD 100 MG/1 ML SYRINGE SC SCH ×2 (10:26→21:30)
[2020-05-18] MEDS: MIDAZOLAM DRIP 50 mg/50mL 50 ML IV SCH ×2 (10:26→23:30)
--- NOTE | 2020-05-18 10:54 | NUR ---
Nutrition Followup Notes Wt: 91.5 kg Pt is sedated, intubated with no relatives at bedside when rounded this am. Sedation with propofol running at 21.72 ml/hr provides an additional 572 kcals from lipids. pt with no new diet order. Will f/u in 2-3 days. Est Energy needs: 7623-4772 kcals (17-20 kcal/kgBW), Est Protein needs: 73-92 gms/day (0.8-1.0 gm/kgBW). Will continue to monitor and reassess prn. LABS: GLU 148 H, BUN 45 H GI: Pt had no BM today per RN doc BS: 16 mod risk. Refer to wound assessment report for full details. PES: 1) Increased nutrient needs aeb pt is sedated, intubated, NPO r/t pt with no PO intake 2) Obesity aeb 136% IBW abd BMI of 31.7 kg/m2 r/t energy intake in excess of energy needs 3) Altered nutrition related lab values aeb elev RFTs, low GFR, mod hypoalbuminemia r/t current medical condition Comments Will continue to closely monitor pertinent labs, PO intake, skin status and weight trends. Will f/u in 2-3 days 1) Continue to closely monitor pt NPO status. 2) If pt remains NPO for the next 48 hours, consider supplemental nutrition support 3) If EN nutrition support initiated, consider Glucerna 1.2 @ 60 ml/hr goal rate. 4) Continue current plan of care
--- NOTE | 2020-05-18 14:10 | NUR ---
Respiratory note: TITRATED FIO2 TO 45%, PEEP FROM 10 TO 8 PER ORDER. NO ABG NEEDED UNTIL THE AM. JOSÉ DUVAL INFORMED OF CHANGES.
--- NOTE | 2020-05-18 16:08 | NUR ---
SPOKE WITH DTR AGAIN, UPDATED ON PLAN OF CARE AND ALL QUESTIONS/CONCERNS ADDRESSED
--- NOTE | 2020-05-18 20:00 | NUR ---
OPEN ASSUMED CARE OF MALE PT ORALLY INTUBATED. PT SEDATED ON DIPRIVAN GTT 20 MCG/KG/MIN, AND VERSED GTT 12 MG/HR. PT GRIMACES DURING TURNING AND ORAL CARE, OTHERWISE NON RESPONSIVE. PT SINUS NEVA 59 ON TIRE CHANGER. OGT IN PLACE TO LIS DRAINING SCANT BILE. PLACEMENT VERIFIED. R. FEMORAL TLC IN PLACE ALL PORTS PATENT. DRESSING CDI. WALTON TO GRAVITY DRAINING CLEAR YELLOW URINE. LUCA SCD'S IN PLACE. ORAL CARE PROVIDED. PT REPOSITIONED WITH PILLOWS USED TO OFFLOAD BONY PROMINENCES. BED IN LOWEST LOCKED POSITION. SIDE RAILS UP X 2. HOB ELEVATED 30 DEGREES. NO INDICATION OF PAIN OBSERVED. PT POSITIVE COVID WITH PROPER PPE IN USE. PT IN FULL VIEW OF RN STATION. WILL CONTINUE TO CLOSELY MONITOR.
--- NOTE | 2020-05-18 20:35 | NUR ---
MD VISIT DR SANON TO BEDSIDE TO EVALUATE PT. ORDERS RECEIVED.
[2020-05-18] MEDS: AZITHROMYCIN 500MG/ 250ML 250 ML IV SCH (21:30)
[2020-05-18] MEDS: PROPOFOL 100 ML IV SCH (21:30)
--- NOTE | 2020-05-18 21:55 | NUR ---
FAMILY CALL PT SISTER CALLED UNIT FOR UPDATE ON PT CONDITION. AFTER PASSWORD FOR PHONE GIVEN. UPDATE PROVIDED ALL QUESTIONS AND CONCERNS ADDRESSED.
[2020-05-19] VITALS (98 sets, daily range): BP systolic 109–145; BP diastolic 46–87
--- NOTE | 2020-05-19 00:30 | NUR ---
Patient bathe/linen change Patient given complete bath. Skin integrity assessed for any changes. Linens changed. Patient repositioned for comfort. ORAL CARE PROVIDED. ALL CANISTERS AND SUCTION TUBING CHANGED.
[2020-05-19] MEDS: PROPOFOL 100 ML IV SCH ×3 (04:00→23:10)
[2020-05-19] MEDS: MIDAZOLAM DRIP 50 mg/50mL 50 ML IV SCH ×4 (04:33→20:30)
[2020-05-19 04:39] LABS: Basophils # (auto) 0 10 ^3/uL (0-0.2); Basophils % (auto) 0.2 % (0.0-2.0); Eosinophils # (auto) 0 10 ^3/uL (0-0.8); Hematocrit 39.1 % (41.0-53.0); Hemoglobin 12.2 g/dL (13.5-17.5); Lymphocytes # (auto) 0.4 10 ^3/uL (0.4-5.4); Lymphocytes % (auto) 6.8 % (10.0-50.0); Mean Corpuscular Hemoglobin 24.8 pg (28.0-32.0); Mean Corpuscular Hgb Conc. 31.3 g/dL (32.0-36.0); Mean Corpuscular Volume 79.3 fL (80.0-100.0); Monocytes # (auto) 0.3 10 ^3/uL (0-1.3); Monocytes % (auto) 5.1 % (0.0-12.0); Neutrophils # (auto) 5.6 10 ^3/uL (1.6-8.6); Neutrophils % (auto) 87.9 % (37.0-80.0); Nucleated Red Blood Cells % 0.1 %; Platelet Count (auto) 250 10^3/uL (140-450); Red Blood Cells 4.93 10^6/uL (4.5-5.90); White Blood Cell 6.4 10^3/uL (4.4-10.8)
[2020-05-19 04:57] LABS: BUN/Creatinine Ratio 48.8; Calcium 8.5 mg/dL (8.5-10.1); Potassium 4.2 mmol/L (3.5-5.1)
--- NOTE | 2020-05-19 08:00 | NUR ---
ASSESSMENT COMPLETED SEE INTERVENTIONS
[2020-05-19] MEDS: NOREPINEPHRINE 8 MG/250ML KIT 250 ML IV SCH (08:54)
--- NOTE | 2020-05-19 09:29 | NUR ---
UPDATED DTR TASNEEM ON PLAN OF CARE AFTER PASSWORD OBTAINED AND ALL QUESTIONS/CONCERNS ADDRESSED
[2020-05-19] MEDS: LISINOPRIL 20 MG TAB GT SCH (09:54)
[2020-05-19] MEDS: DexAMETHasone SOD PHOS 10MG/1ML VIAL INJ IV SCH (09:55)
[2020-05-19] MEDS: METOPROLOL TARTRATE 25 MG TAB PO SCH ×2 (09:55→21:00)
[2020-05-19] MEDS: FAMOTIDINE (10MG/ML) 2ML VL IV SCH (09:55)
[2020-05-19] MEDS: FUROSEMIDE 40 MG/4 ML VIAL IV SCH (09:55)
[2020-05-19] MEDS: ENOXAPARIN SOD 100 MG/1 ML SYRINGE SC SCH ×2 (09:56→21:11)
--- NOTE | 2020-05-19 17:00 | NUR ---
DR SANON AT BEDSIDE, NEW ORDER RECEIVED FOR TUBE FEEDING PER DIETARY RECOMMENDATION
--- NOTE | 2020-05-19 18:00 | NUR ---
UPDATED DTR TASNEEM ON PLAN OF CARE AFTER PASSWORD OBTAINED AND ALL QUESTIONS/CONCERNS ADDRESSED
--- NOTE | 2020-05-19 18:00 | NUR ---
TEMP 100.4 ICE PACKS APPLIED TO BILATERAL AXILLAE AND GROIN. Addendum: 05/19/20 at 1948 by Chaz Bermudez RN 1829 ACTUAL TIME
--- NOTE | 2020-05-19 19:30 | NUR ---
REPORT GIVEN TO KAYLEY KUMAR
--- NOTE | 2020-05-19 19:40 | NUR ---
Total bed change related to patient missing urinal when attempting to urinate. Addendum: 05/20/20 at 0641 by KAYLEY GILMORE RN wrong patient
--- NOTE | 2020-05-19 20:00 | NUR ---
Opening Shift Note: Patient is intubated/sedated. ET size 8.0/24 @ lip: settings AC rate 14; FiO2 45%; vT 500, PEEP 8. Neuro: pupils 3/brisk; flaccid extremities; +cough/hypoactive gag. Cardio: NSR 60s; SBPs 120s-140s; pulses palpable. Resp: ET/oral secretions small rust color. GI: last BM unknown; OGT to LIS; will start feedings per nutrition consult recommendations (communication order). : le inserted on 05/14/20 for strict I/O. Skin intact. IV: left femoral TLC: inserted 05/14/20 running propofol @ 20; Versed @ 12. Left AC 20 g IID inserted on 05/14/20. Patient is positive COVID; appropriate precautions in place. Patient is pending Echo/WC consultation. Will continue to round; reposition; perform oral care prn.
[2020-05-19] MEDS: AZITHROMYCIN 500MG/ 250ML 250 ML IV SCH (21:10)
[2020-05-19] MEDS: Glucerna 1.2 Cal 1Liter BOTTLE GT SCH (22:30)
--- NOTE | 2020-05-19 22:30 | NUR ---
Glucerna 1.2 started per dietary consultation @ 15 ml/hr (goal 60 ml/hr). Will check residual prn.
--- NOTE | 2020-05-19 23:15 | NUR ---
Total bed change related to patient missing urinal when attempting to urinate. Addendum: 05/20/20 at 0641 by KAYLEY GILMORE RN Wrong patient
[2020-05-20] VITALS (98 sets, daily range): BP systolic 111–161; BP diastolic 46–64
--- NOTE | 2020-05-20 02:30 | NUR ---
Tube feeding residual check is 10 ml. Restarted tube feeding at 15 ml/hr.
[2020-05-20] MEDS: MIDAZOLAM DRIP 50 mg/50mL 50 ML IV SCH ×3 (03:00→19:52)
[2020-05-20 04:27] LABS: Hemoglobin 12.6 g/dL (13.5-17.5); Mean Corpuscular Hemoglobin 24.9 pg (28.0-32.0); Mean Corpuscular Volume 79.3 fL (80.0-100.0)
[2020-05-20 04:29] LABS: Hematocrit 40.1 % (41.0-53.0); Mean Corpuscular Hgb Conc. 31.4 g/dL (32.0-36.0); Platelet Count (auto) 264 10^3/uL (140-450); Red Blood Cells 5.06 10^6/uL (4.5-5.90); Red Cell Distribution Width 19.6 % (11.8-14.3); White Blood Cell 6.5 10^3/uL (4.4-10.8)
[2020-05-20 04:32] LABS: Band Neutrophils % (manual) 0; Basophils % (manual) 0 (0.0-2.0); Blast Cells 0; Metamyelocytes % 0; Myelocytes % 0; Promyelocytes % 0; Reactive Lymphocytes 0
[2020-05-20 04:45] LABS: Calcium 8.9 mg/dL (8.5-10.1); Magnesium 3.3 mg/dL (1.6-2.6); Potassium 4.6 mmol/L (3.5-5.1)
[2020-05-20 04:46] LABS: Eosinophils % (manual) 2 (0-7); Lymphocytes % (manual) 12 (10.0-50.0); Monocytes % (manual) 4 (0-12)
[2020-05-20 04:47] LABS: BUN/Creatinine Ratio 45.3
--- NOTE | 2020-05-20 05:00 | NUR ---
Patient bathe/linen change Patient given complete CHG bath. Skin integrity assessed for any changes. Linens and gown changed. Patient repositioned for comfort.
--- NOTE | 2020-05-20 07:30 | NUR ---
REPORT RECEIVED, ASSUMING CARE
[2020-05-20] MEDS: PROPOFOL 100 ML IV SCH ×2 (08:03→22:30)
--- NOTE | 2020-05-20 10:24 | NUR ---
Nutrition Followup Notes Wt: 90.0 kg Pt is sedated, intubated with no relatives at bedside when rounded this am. Sedation with propofol running at 10.886 ml/hr provides an additional 287 kcals from lipids. Pt with Glucerna 1.2 ordered at 60 ml/hr with it running at 15 ml/hr per RN note d/t residuals. Will f/u in 2-3 days. Est Energy needs: 5550-9302 kcals (17-20 kcal/kgBW), Est Protein needs: 73-92 gms/day (0.8-1.0 gm/kgBW). Will continue to monitor and reassess prn. LABS: BUN 39H, Gluc 128H, Alb 2.7L GI: Pt had no BM today per RN doc BS: 11 high risk. Refer to wound assessment report for full details. PES: 1) Increased nutrient needs aeb pt is sedated, intubated, NPO r/t pt with no PO intake 2) Obesity aeb 136% IBW abd BMI of 31.7 kg/m2 r/t energy intake in excess of energy needs 3) Altered nutrition related lab values aeb elev RFTs, low GFR, mod hypoalbuminemia r/t current medical condition Comments Will continue to closely monitor pertinent labs, PO intake, skin status and weight trends. Will f/u in 2-3 days 1) Continue to closely monitor pt NPO status. 2) If EN nutrition support initiated, consider Glucerna 1.2 @ 60 ml/hr goal rate. 3) Continue current plan of care
[2020-05-20] MEDS: FAMOTIDINE (10MG/ML) 2ML VL IV SCH ×2 (10:30→22:00)
[2020-05-20] MEDS: DexAMETHasone SOD PHOS 10MG/1ML VIAL INJ IV SCH (10:30)
[2020-05-20] MEDS: ENOXAPARIN SOD 100 MG/1 ML SYRINGE SC SCH ×2 (10:30→22:00)
[2020-05-20] MEDS: FUROSEMIDE 40 MG/4 ML VIAL IV SCH (10:30)
[2020-05-20] MEDS: NOREPINEPHRINE 8 MG/250ML KIT 250 ML IV SCH (11:29)
[2020-05-20] MEDS: LISINOPRIL 20 MG TAB GT SCH (11:30)
[2020-05-20] MEDS: METOPROLOL TARTRATE 25 MG TAB PO SCH ×2 (11:30→22:00)
--- NOTE | 2020-05-20 14:20 | NUR ---
DR BONNER AT BEDSIDE
[2020-05-20] MEDS ORDERED: DEXTROSE (50%) 50ML SYRG IV PRN (14:30)
--- NOTE | 2020-05-20 16:00 | NUR ---
UPDATED X DTRS ALL QUESTIONS ADDRESSED
--- NOTE | 2020-05-20 19:45 | NUR ---
Opening Shift Note: Patient is intubated/sedated. ET size 8.0/24 @ lip: settings AC rate 14; FiO2 40%; vT 500, PEEP 8. Neuro: pupils 3/brisk; flaccid extremities; hypoactive cough/hypoactive gag. Cardio: NSR 60s-70s ; SBPs 120s-140s; pulses palpable; DP weak. Resp: ET/oral secretions small rust color; copious nathan blood/large clots from mouth. GI: last BM unknown; OGT; feedings per nutrition consult recommendations (communication order); Glucerna currently @ 40 ml/hr; 10 ml residual, increased to 50 ml/hr (goal 60). : le inserted on 05/14/20 for strict I/O. Skin intact. IV: left femoral TLC: inserted 05/14/20 running propofol @ 20; Versed @ 12. Left AC 20 g IID inserted on 05/14/20. Patient is positive COVID; appropriate precautions in place. Patient is pending Echo/WC consultation. Will continue to round; reposition; perform oral care prn.
[2020-05-20] MEDS: InsuLIN REG 1unit/0.01ml Soln (100units/ml) SC SCH (22:00)
[2020-05-20] MEDS: ACCU-CHEK COMFORT CURVE STRIP VI SCH (22:00)
[2020-05-20] MEDS: AZITHROMYCIN 500MG/ 250ML 250 ML IV SCH (22:00)
--- NOTE | 2020-05-20 22:00 | NUR ---
Lovenox held related to copious bleeding from mouth.
[2020-05-21] VITALS (96 sets, daily range): BP systolic 119–160; BP diastolic 43–70
[2020-05-21 04:11] LABS: Basophils # (auto) 0.1 10 ^3/uL (0-0.2); Basophils % (auto) 0.9 % (0.0-2.0); Eosinophils # (auto) 0.1 10 ^3/uL (0-0.8); Eosinophils % (auto) 1.5 % (0.0-7.0); Hematocrit 42.3 % (41.0-53.0); Hemoglobin 13.3 g/dL (13.5-17.5); Lymphocytes # (auto) 0.7 10 ^3/uL (0.4-5.4); Lymphocytes % (auto) 7.2 % (10.0-50.0); Mean Corpuscular Hemoglobin 24.9 pg (28.0-32.0); Mean Corpuscular Hgb Conc. 31.4 g/dL (32.0-36.0); Mean Corpuscular Volume 79.5 fL (80.0-100.0); Monocytes # (auto) 0.3 10 ^3/uL (0-1.3); Monocytes % (auto) 3.5 % (0.0-12.0); Neutrophils # (auto) 8.2 10 ^3/uL (1.6-8.6); Neutrophils % (auto) 86.9 % (37.0-80.0); Nucleated Red Blood Cells % 0.1 %; Platelet Count (auto) 277 10^3/uL (140-450); Red Blood Cells 5.31 10^6/uL (4.5-5.90); Red Cell Distribution Width 19.4 % (11.8-14.3); White Blood Cell 9.5 10^3/uL (4.4-10.8)
[2020-05-21 04:25] LABS: INR 1.03 (0.9-1.15)
[2020-05-21 04:29] LABS: BUN/Creatinine Ratio 41.7; Potassium 4.3 mmol/L (3.5-5.1)
--- NOTE | 2020-05-21 05:00 | NUR ---
Patient bathe/linen change Patient given complete CHG bath. Skin integrity assessed for any changes. Linens and changed. Patient repositioned for comfort.
[2020-05-21] MEDS: MIDAZOLAM DRIP 50 mg/50mL 50 ML IV SCH ×4 (05:30→19:19)
[2020-05-21] MEDS: PROPOFOL 100 ML IV SCH ×3 (06:39→19:20)
--- NOTE | 2020-05-21 07:30 | NUR ---
ASSUMING CARE, PATIENT INTUBATED/SEDATED ON ISOLATION FOR COVID 19. SEE PHYSICAL ASSESSMENT.
[2020-05-21] MEDS: NOREPINEPHRINE 8 MG/250ML KIT 250 ML IV SCH (08:17)
[2020-05-21] MEDS: FUROSEMIDE 40 MG/4 ML VIAL IV SCH (09:50)
[2020-05-21] MEDS: ENOXAPARIN SOD 100 MG/1 ML SYRINGE SC SCH ×2 (09:51→22:00)
[2020-05-21] MEDS: cefTRIAXone 1GM/50ML D5W 50 ML IV SCH (09:51)
[2020-05-21] MEDS: CHOLECALCIFEROL (VITD3) 1,000UNIT=25mCg TAB PO SCH (09:51)
[2020-05-21] MEDS: ASCORBIC ACID 500 MG TAB PO SCH (09:51)
[2020-05-21] MEDS: ACCU-CHEK COMFORT CURVE STRIP VI SCH ×2 (09:51→22:00)
[2020-05-21] MEDS: DexAMETHasone SOD PHOS 10MG/1ML VIAL INJ IV SCH (09:51)
[2020-05-21] MEDS: FAMOTIDINE (10MG/ML) 2ML VL IV SCH ×2 (09:51→22:00)
[2020-05-21] MEDS: InsuLIN REG 1unit/0.01ml Soln (100units/ml) SC SCH ×2 (10:00→22:00)
--- NOTE | 2020-05-21 10:15 | NUR ---
Cooling Measures applied. Patient currently has temp of 100.0 , cooling measures in place.
--- NOTE | 2020-05-21 10:30 | NUR ---
ROUNDS SIMPLE CARES PROVIDED AND PATIENT NOTED TO DESATURATE TO 89-90% FROM 93% ON 40% FI02. PATIENT SUCTIONED THICK CREAMY, MODERATE AMOUNTS VIA ETT. ONCE 100% PROVIDED PATIENT INCREASED BACK TO 93%. WILL CONTINUE TO MONITOR. CPAP HELD AT THIS TIME UNTIL INSURANCE POLICY CLERK ROUNDS.
[2020-05-21] MEDS: Glucerna 1.2 Cal 1Liter BOTTLE GT SCH (12:07)
--- NOTE | 2020-05-21 12:30 | NUR ---
GASTRIC RESIDUAL 45CC OF GASTRIC RESIDUAL NOTED DURING ASPIRATION. FEEDINGS DECREASED TO 40ML/HR. ASPIRATION PRECAUTIONS IN PLACE.
[2020-05-21] MEDS: ACETAMINOPHEN 325 MG TAB PO PRN (12:48)
[2020-05-21] MEDS: METOPROLOL TARTRATE 25 MG TAB PO SCH ×2 (12:48→22:00)
--- NOTE | 2020-05-21 14:15 | NUR ---
Respiratory note: ROUTINE VENT CHECK DONE. TITRATED FIO2 TO 30%. LAVAGED PT AND SUCTIONED COPIOUS AMOUNTS OF THICK YELLOW/WILKS MUCUS PLUGS. RN NOTIFY.
--- NOTE | 2020-05-21 14:33 | NUR ---
MD ROUNDS DR. BONNER AT BEDSIDE. MD NOTIFIED OF DESATURATIONS NOTED DURING MINIMAL CARE AND SUPINE POSITION TO 89-90% WITH 40% FI02 AND MODERATE CREAMY THICK SECRETIONS VIA ETT. MD STATED IF OK WITH SPORTS ANCHOR PATIENT TO BE SENT TO [facility]. AWAITING SPORTS ANCHOR ROUNDS.
--- NOTE | 2020-05-21 15:00 | NUR ---
FI02 PER R.T PATIENT HAD A LARGE COPIOUS AMOUNT OF THICK, YELLOW, MUCUS PLUGS NOTED VIA ETT. FI02 DECREASED TO 30% BY R.T AT BEDSIDE. PT POX 90-92%. WILL CONTINUE TO MONITOR.
--- NOTE | 2020-05-21 16:38 | NUR ---
LINEWORKER AT BEDSIDE LINEWORKER UPDATED ON PATIENTS STATUS WITH R.T AT SIDE. MD AWARE OF LARGE AMOUNT OF MUCUS PLUGS PER R.T. POSSIBLE BRONCHOSCOPY FOR THURSDAY. SEE MD ORDERS/ NOTES.
--- NOTE | 2020-05-21 16:43 | NUR ---
Family updated on pt status Family of RANCHO JAIME updated on patient's status and condition. All questions and concerns addressed. Hananh, daughter verbalized understanding. Hannah aware of possible bronchoscopy on Thursday and possible transfer to [facility].
--- NOTE | 2020-05-21 16:44 | NUR ---
D/C Planning Regarding social service consult for [facility]. Faxed clinical information to [facility]. Pending acceptance.
--- NOTE | 2020-05-21 16:46 | NUR ---
LENARD CALLED FOR AN UPDATE: QUESTIONS AND CONCERNS ADDRESSED. LENARD AWARE PATIENT IS COVID POSITIVE.
--- NOTE | 2020-05-21 18:00 | NUR ---
Cooling Measures applied. Patient currently has temp of 100.4 , cooling measures in place.
[2020-05-21] MEDS: LISINOPRIL 20 MG TAB GT SCH (18:15)
--- NOTE | 2020-05-21 20:00 | NUR ---
Opening Shift Note: Patient is intubated/sedated. ET size 8.0/24 @ lip: settings AC rate 14; FiO2 30%; vT 500, PEEP 8. Neuro: pupils 3/brisk; flaccid extremities; hypoactive cough/hypoactive gag. Cardio: NSR 60s-70s ; SBPs 120s-140s; pulses palpable; DP weak. Resp: ET/oral secretions small rust color. GI: last BM unknown; OGT; feedings per nutrition consult recommendations (communication order); Glucerna currently @ 40 ml/hr; 5 ml residual, increased to 50 ml/hr (goal 60). : le inserted on 05/14/20 for strict I/O. Skin intact. IV: left femoral TLC: inserted 05/14/20 running propofol @ 20; Versed @ 6. Left AC 20 g IID inserted on 05/14/20. Patient is positive COVID; appropriate precautions in place. Patient is pending Echo/WC consultation. Will continue to round; reposition; perform oral care prn.
[2020-05-22] VITALS (92 sets, daily range): BP systolic 90–170; BP diastolic 46–79
--- NOTE | 2020-05-22 02:05 | NUR ---
Respiratory note: INCREASED FIO2 TO 35%, RN INFORMED.
[2020-05-22] MEDS: PROPOFOL 100 ML IV SCH ×2 (03:15→12:19)
[2020-05-22] MEDS: MIDAZOLAM DRIP 50 mg/50mL 50 ML IV SCH ×2 (03:15→12:15)
--- NOTE | 2020-05-22 04:00 | NUR ---
Patient bathe/linen change Patient given complete CHG bath. Skin integrity assessed for any changes. Linens and gown changed. Patient repositioned for comfort.
[2020-05-22 04:43] LABS: Hemoglobin 13.7 g/dL (13.5-17.5); Lymphocytes # (auto) 0.9 10 ^3/uL (0.4-5.4); Monocytes # (auto) 0.5 10 ^3/uL (0-1.3)
[2020-05-22 04:47] LABS: Basophils # (auto) 0 10 ^3/uL (0-0.2); Basophils % (auto) 0.2 % (0.0-2.0); Eosinophils # (auto) 0.2 10 ^3/uL (0-0.8); Eosinophils % (auto) 1.2 % (0.0-7.0); Hematocrit 44.2 % (41.0-53.0); Lymphocytes % (auto) 5.2 % (10.0-50.0); Mean Corpuscular Hemoglobin 24.8 pg (28.0-32.0); Mean Corpuscular Hgb Conc. 30.9 g/dL (32.0-36.0); Mean Corpuscular Volume 80.1 fL (80.0-100.0); Monocytes % (auto) 2.9 % (0.0-12.0); Neutrophils # (auto) 15.4 10 ^3/uL (1.6-8.6); Neutrophils % (auto) 90.5 % (37.0-80.0); Nucleated Red Blood Cells % 0.4 %; Platelet Count (auto) 313 10^3/uL (140-450); Red Blood Cells 5.52 10^6/uL (4.5-5.90); Red Cell Distribution Width 19.9 % (11.8-14.3)
[2020-05-22 04:57] LABS: BUN/Creatinine Ratio 46.5; CRP High Sensitivity 0.24 mg/dL (< 0.3); Potassium 4.4 mmol/L (3.5-5.1)
--- NOTE | 2020-05-22 07:30 | NUR ---
Received report from kelli RN Patient remains sedated and on mechanical ventilation TV 500 PEEP 8 AC 14 FIO2 35%. Patient in NSR, HR 78, BP 139/57. Patien ton Propofol 20mcg, Versed 5 mg. Patient on tube feeding @ 50ml/hr Glucerna. Muro catheter to gravity, yellow urine with seditment. Left femoral 3x central line, left AC 20g hep lock. Will continue to monitor.
--- NOTE | 2020-05-22 09:23 | NUR ---
Fever 100.6 , gave Acetaminophen oral suspension via NG tube and cool wash clothes. No ice available in machine.
[2020-05-22] MEDS: cefTRIAXone 1GM/50ML D5W 50 ML IV SCH (09:25)
[2020-05-22] MEDS: LISINOPRIL 20 MG TAB GT SCH (09:26)
[2020-05-22] MEDS: METOPROLOL TARTRATE 25 MG TAB PO SCH ×2 (09:27→21:55)
[2020-05-22] MEDS: FAMOTIDINE (10MG/ML) 2ML VL IV SCH ×2 (09:27→21:54)
[2020-05-22] MEDS: FUROSEMIDE 40 MG/4 ML VIAL IV SCH (09:27)
[2020-05-22] MEDS: DexAMETHasone SOD PHOS 10MG/1ML VIAL INJ IV SCH (09:27)
[2020-05-22] MEDS: ASCORBIC ACID 500 MG TAB PO SCH (09:28)
[2020-05-22] MEDS: CHOLECALCIFEROL (VITD3) 1,000UNIT=25mCg TAB PO SCH (09:28)
--- NOTE | 2020-05-22 09:28 | NUR ---
Bel mediations unable to scan, no computer available.
[2020-05-22] MEDS: InsuLIN REG 1unit/0.01ml Soln (100units/ml) SC SCH ×2 (10:00→17:59)
[2020-05-22] MEDS: ENOXAPARIN SOD 100 MG/1 ML SYRINGE SC SCH ×2 (10:00→21:55)
[2020-05-22] MEDS: ACCU-CHEK COMFORT CURVE STRIP VI SCH ×2 (10:00→21:55)
[2020-05-22] MEDS ORDERED: VANCOMYCIN PER PHARMACY 0 MG IV SCH (11:00)
--- NOTE | 2020-05-22 11:02 | NUR ---
Collections Clerk called Accepted to [facility], but has to be negative to COVID test if going with ETT tube. If gong to [facility] with Trach/extubated, then he can go with a positive COVID test. Will pass on to Primary Physician.
--- NOTE | 2020-05-22 11:06 | NUR ---
RN put in new order for COVID inhouse swab test per protocol for either transfer to [facility] with ETT tube, or if the patient will be trach/peg here at [facility].
--- NOTE | 2020-05-22 11:27 | NUR ---
D/C Planning Received a follow up called from [facility]win [facility] at 11:00 advising me patient has been accepted to [facility], but has to be negative COVID if going to facility with a ETT Tube. If patient does not go with a ETT Tube to [facility] then patient needs to be Trach or extubated, then he can go to facility being positive COVID. Informed JOSÉ Jones.
--- NOTE | 2020-05-22 11:57 | NUR ---
RN and general merchandise salesperson student in room to give ice bath d/t Temp of 101.1, oral care, and reposition. Oral care has nathan blood right side of mouth, unable to see d/t lighting. Report from p.m. nurse also that patient was bleeding for right side of mouth. Will monitor, bring flashlight into room to see the cause.
--- NOTE | 2020-05-22 13:05 | NUR ---
WOUND CARE NOTE: Wound care in for skin integrity monitoring. Patient continue resting in ICU bed in Rm. 104. Patient is still intubated, sedated and mechanically ventilated. Patient appears to be in no pain using Blake Zarate Faces Pain Scale. Patient remain wound free. He continue receiving BID/PRN cleaning and application of Barrier cream to sacral, buttocks as preventative. RECOMMENDATION: Continuation of all wound care orders prescribed by MD, continue with skin/wound plan of care, continue monitoring by wound care while patient is hospitalized.
--- NOTE | 2020-05-22 14:59 | NUR ---
Dr. Lundy bedside. CPAP orders for weaning and sedation vacation. New order for precedex for agitation.
--- NOTE | 2020-05-22 15:07 | NUR ---
assessment Patient is a 74 year old male who is in ICU on a vent. Patient is Covid positive. Per patients daughter krysta prior to admission patient lived home with family and was independent. Per Krysta patient has no need for DME. Krysta is not aware of patients PCP. Patients and other daughter Edilma are also positive for Covid. Per Krysta patient was transported to ER for shortness of breath and fever. Patient was admitted and placed on a vent. I informed Nery that patient has a ss consult for LTAC. Per Nery call Edilma. Krysta verbalized understanding. I called Edilma beltre daughter and informed her of patients LTAC consult. Per Edilma she wants to hold off until she speaks to the MD. Per Edilma she will call me back and let me know what she decides. I have informed Rosalba SW1. Addendum: 05/22/20 at 1529 by Ling HERNANDEZ Amended: Links added.
--- NOTE | 2020-05-22 15:08 | NUR ---
Nutrition Followup Notes Wt: 90.0 kg Pt is sedated, intubated with no relatives at bedside when rounded this am. Sedation with propofol running at 10.886 ml/hr provides an additional 287 kcals from lipids. Pt with Glucerna 1.2 ordered at 60 ml/hr with it running at 40 ml/hr per RN note with 5 ml residuals. Will f/u in 2-3 days. Est Energy needs: 7765-5167 kcals (17-20 kcal/kgBW), Est Protein needs: 73-92 gms/day (0.8-1.0 gm/kgBW). Will continue to monitor and reassess prn. LABS: Gluc 133 H, Alb 2.7 L GI: Pt had no BM today per RN doc BS: 11 high risk. Refer to wound assessment report for full details. PES: 1) Increased nutrient needs aeb pt is sedated, intubated, NPO r/t pt with no PO intake 2) Obesity aeb 136% IBW abd BMI of 31.7 kg/m2 r/t energy intake in excess of energy needs 3) Altered nutrition related lab values aeb elev RFTs, low GFR, mod hypoalbuminemia r/t current medical condition Comments Will continue to closely monitor pertinent labs, PO intake, skin status and weight trends. Will f/u in 2-3 days 1) Continue to closely monitor pt NPO status. 2) If EN nutrition support initiated, consider Glucerna 1.2 @ 60 ml/hr goal rate. 3) Continue current plan of care
--- NOTE | 2020-05-22 15:25 | NUR ---
Daughter called , updated on status, she does not wish her father to be moved, RN told her as long as he was COVID positive that could not be a posibility.
--- NOTE | 2020-05-22 15:30 | NUR ---
Dr. Thacker bedside. Updated on status and social work consult. Discussed LTAC only if patient is COVID negative if ETT or is Trached here first. New orders for Lactulose and Dulcolax suppository 2x, and tube feedings SET rate of 20 ml/hr.
[2020-05-22] MEDS: DexMEDEtomidine 400 MCG in D5W 5% 96 ML IV SCH (15:49)
[2020-05-22] MEDS: VANCOMYCIN 1GM/250ML 250 ML IV SCH (15:50)
--- NOTE | 2020-05-22 16:00 | NUR ---
RN turned versed and propofol off. RN started precedex to see if patient will wake up enough to CPAP.
--- NOTE | 2020-05-22 16:52 | NUR ---
Patients eyes are open, is not tracking at this time, nor is he moving extremities at this time.
--- NOTE | 2020-05-22 17:30 | NUR ---
Patient awake but not moving extremities, all previous sedation off and patient is on precedex only to prepare for cpap tomorrow.
--- NOTE | 2020-05-22 18:20 | NUR ---
Shift Summary oral care completed Q2/3 hours. Oral secretions include nathan blood right side of throat. Reported on previous shift, RN can not visualize the source of bleeding. RN packed oral cavity at 1800 to see if bleeding would stop. Patient had fever 100.1 early in day, given tylenol oral suspension with no reduction in temperature. RN then gave cold ice water bath and patient gradually became afebrile.RT and RN did not want CPAP while patient had fever, per Dr. Kamron danielson to switch sedation and prepare for CPAP as patient awakes. Patient le catheter 1000 ml yellow urine with sediment. Last BSC 188, 3 units given early d/t already being in the room. technical services manager reports acceptance to [facility], but cannot move with ETT until COVID negative, new swab completed this afternoon. Spray Gun Operator would like to CPAP him first before transfer. End of shift, patient on same vent settings, on precedex 0.02 mcg/kg. Patient does not respond accept eyelid opening at this time. Will endorse care to p.m. nurse.
[2020-05-22] MEDS ORDERED: BISACODYL 10 MG RECT SUPP PR ONE (22:00)
[2020-05-22] MEDS ORDERED: LACTULOSE 20Gm/30ML SOLN PO ONE (22:00)
--- NOTE | 2020-05-22 22:00 | NUR ---
Pt had moderate amount of liquid brown stool. Held dulcolax and lactulose for now. Will inform MD. Cleansed pt and changed pads. Pt tolerated well.
[2020-05-23] VITALS (52 sets, daily range): BP systolic 87–176; BP diastolic 41–73
--- NOTE | 2020-05-23 | NUR ---
TF stopped for CPAP in AM.
[2020-05-23] MEDS: VANCOMYCIN 1GM/250ML 250 ML IV SCH ×2 (01:30→13:00)
--- NOTE | 2020-05-23 03:45 | NUR ---
Temperature Pt febrile of 101.5. Cooling measures applied and Tylenol PRN given via NGT PER MD order.
[2020-05-23 04:23] LABS: Basophils # (auto) 0 10 ^3/uL (0-0.2); Basophils % (auto) 0.1 % (0.0-2.0); Eosinophils # (auto) 0.1 10 ^3/uL (0-0.8); Eosinophils % (auto) 0.6 % (0.0-7.0); Hematocrit 43.5 % (41.0-53.0); Hemoglobin 13.5 g/dL (13.5-17.5); Lymphocytes # (auto) 0.9 10 ^3/uL (0.4-5.4); Lymphocytes % (auto) 4.5 % (10.0-50.0); Mean Corpuscular Hemoglobin 24.8 pg (28.0-32.0); Mean Corpuscular Volume 80.1 fL (80.0-100.0); Monocytes # (auto) 0.6 10 ^3/uL (0-1.3); Neutrophils # (auto) 18.1 10 ^3/uL (1.6-8.6); Neutrophils % (auto) 91.8 % (37.0-80.0); Platelet Count (auto) 276 10^3/uL (140-450); Red Blood Cells 5.44 10^6/uL (4.5-5.90); Red Cell Distribution Width 19.8 % (11.8-14.3); White Blood Cell 19.7 10^3/uL (4.4-10.8)
[2020-05-23 04:34] LABS: Albumin 2.6 g/dL (3.4-5.0); Calcium 9.1 mg/dL (8.5-10.1)
[2020-05-23 04:37] LABS: BUN/Creatinine Ratio 41.9; Bilirubin, Total 0.5 mg/dL (0.2-1.0)
--- NOTE | 2020-05-23 06:01 | NUR ---
Elimination Pt had large amount of liquid brown stool. Pt cleansed and new linens applied. Pt tolerated well.
--- NOTE | 2020-05-23 06:04 | NUR ---
Temp re check Temp down to 100.9 at this time.
--- NOTE | 2020-05-23 08:15 | NUR ---
RN completed a.m. care..Patient skin warm temp 99.5, cool washcloth bath while in room. Active ROM completed with patient. Patient able to nod and turn head in response to questions.
--- NOTE | 2020-05-23 08:20 | NUR ---
Patient started on CPAP, tolerating it well. Patient still on 0.1 mcg/kg. hr. Patient beginning to wake up and follow commands. Will continue to monitor.
--- NOTE | 2020-05-23 09:45 | NUR ---
Patient remains on CPAP, completely awake, but weak. Will move all extremities, lower extremities are stronger than upper. Cough and gag strong, can control cough at this point. Will continue to monitor, elementary instructional coach patient and followup with RT.
[2020-05-23] MEDS: InsuLIN REG 1unit/0.01ml Soln (100units/ml) SC SCH ×2 (10:00→21:12)
[2020-05-23] MEDS: ACCU-CHEK COMFORT CURVE STRIP VI SCH ×2 (10:00→21:11)
[2020-05-23] MEDS: cefTRIAXone 1GM/50ML D5W 50 ML IV SCH (10:07)
[2020-05-23] MEDS: DexAMETHasone SOD PHOS 10MG/1ML VIAL INJ IV SCH (10:07)
[2020-05-23] MEDS: LISINOPRIL 20 MG TAB GT SCH (10:07)
[2020-05-23] MEDS: FUROSEMIDE 40 MG/4 ML VIAL IV SCH (10:09)
[2020-05-23] MEDS: FAMOTIDINE (10MG/ML) 2ML VL IV SCH ×2 (10:09→21:10)
[2020-05-23] MEDS: METOPROLOL TARTRATE 25 MG TAB PO SCH ×2 (10:09→17:14)
[2020-05-23] MEDS: ASCORBIC ACID 500 MG TAB PO SCH (10:10)
[2020-05-23] MEDS: CHOLECALCIFEROL (VITD3) 1,000UNIT=25mCg TAB PO SCH (10:10)
[2020-05-23] MEDS: ENOXAPARIN SOD 100 MG/1 ML SYRINGE SC SCH ×2 (10:11→21:11)
--- NOTE | 2020-05-23 10:40 | NUR ---
Extubated at 1040. Patient following commands, strong cough/gag. On aerosol air at 40%, SPO2 96% RR 18 HR 74 BP 165/60, Temp 99.9. No stridor, patient calm and in no signs of stress.
--- NOTE | 2020-05-23 11:24 | NUR ---
Patient post extubation, waking up more, and moving lower extremities. No stridor, no respiratory distress. Will continue to monitor.
[2020-05-23] MEDS: PROPOFOL 100 ML IV SCH (12:25)
[2020-05-23] MEDS: DexMEDEtomidine 400 MCG in D5W 5% 96 ML IV SCH (13:10)
--- NOTE | 2020-05-23 14:23 | NUR ---
RN called Hospitalist to request downgrade since patient was extubated at 1040. Patient is stable respiratory. Left message on office voice mail.
--- NOTE | 2020-05-23 14:26 | NUR ---
Dr. Thacker returned paged. New order to [facility] rm #[id number] at 1700 if patient remains stable. New order for PT & swallow evaluation. Keep NPO until then.
--- NOTE | 2020-05-23 14:36 | NUR ---
Spoke with Kesha, daughter updated on extubation status and downgrade to [facility]. All questions answered. Will call back after 2200 when patient is in [facility].
--- NOTE | 2020-05-23 17:30 | NUR ---
Report given to JOSÉ Stahl in [facility]. Patient prepared for transport with COVID precautions. Patient on oxymizer/NC as tolerated by /Dr. Lundy. Patient AO x4, upper extremities weak. NPO except ice chips until swallow evaluation. Patient has been febrile, ----responds to ice baths, did not give acetaminophen as it did not work yesterday. In NSR 70-80's, BP 132/65 upon transfer. Active bowel sounds, 2 small bowel movements on shift. Patient responds to dulcolax suppositories. Left femoral groin central line patent, new dressing. Muro catheter patent, heavy sediment, needs daily flushing, total output 1300 ml. Endorsed care.
--- NOTE | 2020-05-23 17:45 | NUR ---
TRANSFER Received patient from ICU 104 to 261 on Novel Respiratory Isolation for COVID. Patient is alert, denies pain and shows no s/s of distress. Patient placed on NC @ 5L with O2 sats 92%. Vital signs on transfer: HR116 BP 124/102 RR 22 O2 sats 92% TEMP 100.0 rectal. Muro draining yellow urine with sediment noted. Bed in lowest position, rails x4 up for safety, and call light within reach. Patient currently NPO pending swallow eval by speech therapy. Patient was noted to be tolerating ice chips by off going RN. Updated on plan of care. Will continue to monitor.
--- NOTE | 2020-05-23 18:00 | NUR ---
RESPIRATORY Patient started to drop O2 sat in high 80s on 5L NC. Called RT and got Oxymizer. Placed patient on 5L Oyxmizer. O2 sats ~93-95%.
--- NOTE | 2020-05-23 18:59 | NUR ---
END OF SHIFT NOTE Patient resting in bed with no s/s of distress noted. Patient remains on 5L Oxymizer with O2 sats 92-94%. Patient is still NPO except for ice chips until swallow eval completed. Muro draining to gravity. Report to be given to NOC RNMary.
--- NOTE | 2020-05-23 19:30 | NUR ---
OPENING NOTE REPORT RECEIVED FROM ANKIT KUMAR. THIS IS A POSITIVE COVID PATIENT ON NOVEL RESPIRATORY ISOLATION. PATIENT IS A/OX3, THAI SPEAKING ONLY WITH PERIODS OF CONFUSION. PATIENT IS CONNECTED TO CONTINUOUS BEDSIDE MONITORS. PATIENT IS ON 5L OXYMIZER WITH SPO2 95%. WALTON CATHETER IN PLACE DRAINING YELLOW URINE WITH SEDIMENT. LEFT FEMORAL TRIPLE LUMEN CATH IN PLACE. PERIPHERAL IV TO LEFT AC 20G INTACT AND PATENT. PHYSICAL ASSESSMENT DONE-SEE INTERVENTIONS. SCD'S ON BILATERALLY. HEELS OFFLOADED WITH PILLOW. Q2H TURNS INITIATED. OPTIFOAM TO SACRUM PREVENTATIVE. POC DISCUSSED WITH PATIENT. PATIENT STATES HE IS GOING HOME. EDUCATED PATIENT THAT THERE IS NO ORDER AT THIS TIME FOR DISCHARGE. CALL LIGHT WITHIN REACH.
[2020-05-23] MEDS: hydrALAZINE HCL 20 MG/ML VL IV PRN (19:58)
[2020-05-24] VITALS: BP 161/67
--- NOTE | 2020-05-24 01:27 | NUR ---
MARICRUZO STILL PENDING VANCO TROUGH RESULTS
--- NOTE | 2020-05-24 02:13 | NUR ---
VANCO TROUGH RESULTS BACK. VANCO TROUGH 3.7. WILL CALL PHARMACY TO RETIME VANCO SINCE IT IS NOW OFF SCHEDULE
[2020-05-24] MEDS: VANCOMYCIN 1GM/250ML 250 ML IV SCH (02:20)
--- NOTE | 2020-05-24 03:00 | NUR ---
AM CARE PATIENT GIVEN COMPLETE BED BATH USING WARM SOAPY WASH CLOTHS AND CHG WIPES. PATIENT NOTED TO HAVE A LARGE LOOSE BROWN BOWEL MOVEMENT. PATIENT CLEANED WITH SOAP AND WATER. PATIENT TOLERATED WELL. NEW OPTIFOAM TO SACRUM PLACED PREVENTATIVE. NEW GOWN AND LINEN PROVIDED TO PATIENT. ORAL CARE USING ORAL CARE KIT AND SUCTION PROVIDED TO PATIENT BY ELLA GRANDE. PATIENT TOLERATED WELL
--- NOTE | 2020-05-24 03:03 | NUR ---
Central line Dressing Changes Dressing change done with a sterile technique. Cleansed with chloraprep scrub/betadine. Bio-patch as available. Occlusive dressing applied. Changed claves.
[2020-05-24] MEDS: hydrALAZINE HCL 20 MG/ML VL IV PRN (03:35)
[2020-05-24 04:00] VITALS: BP 174/71
[2020-05-24 04:35] VITALS: BP 141/55
--- NOTE | 2020-05-24 06:56 | NUR ---
CLOSING PATIENT TOLERATED 5L OXYMIZER THROUGHOUT SHIFT. BLOOD BP ELEVATED, HYDRALAZINE GIVEN TWICE DURING SHIFT-SEE EMAR FOR DETAILS. BP NOW 131/53. PATIENT CONNECTED TO CONTINUOUS BEDSIDE MONITORS. WILL ENDORSE CARE TO AM SHIFT JOSÉ SIMEON.
--- NOTE | 2020-05-24 07:45 | NUR ---
OPENING SHIFT NOTE Received report from NOC RN, Mary. Assumed care of patient. Received patient lying in bed, connected to bedside monitor. Patient is currently on Novel Respiratory Isolation for COVID19. Patient is A&Ox4 but with moments of confusion. Patient denies pain when asked, no s/s of distress noted. Patient currently on Oxymizer 5L with O2 sats 94%. Patient with PIV to Left AC #20 that is patent and a left femoral TLC in which all ports flush and draw blood. Muro draining to gravity yellow urine. Bed in lowest position, rails x3 up and call light within reach. Updated on plan of care. Will continue to monitor q1hr/PRN.
[2020-05-24 08:00] VITALS: BP 145/60
[2020-05-24] MEDS: cloNIDine HCL 0.1 MG TAB PO SCH ×3 (08:00→22:00)
[2020-05-24] MEDS: HCTZ 25 MG TAB PO SCH (08:00)
[2020-05-24] MEDS: cefTRIAXone 1GM/50ML D5W 50 ML IV SCH (08:45)
[2020-05-24] MEDS: DexAMETHasone SOD PHOS 10MG/1ML VIAL INJ IV SCH (08:45)
[2020-05-24] MEDS: LISINOPRIL 20 MG TAB GT SCH (08:45)
[2020-05-24] MEDS: FAMOTIDINE (10MG/ML) 2ML VL IV SCH ×2 (08:45→22:37)
[2020-05-24] MEDS: FUROSEMIDE 40 MG/4 ML VIAL IV SCH (08:45)
[2020-05-24] MEDS: CHOLECALCIFEROL (VITD3) 1,000UNIT=25mCg TAB PO SCH (08:46)
[2020-05-24] MEDS: METOPROLOL TARTRATE 25 MG TAB PO SCH (08:46)
[2020-05-24] MEDS: methIMAzole 5 MG TAB PO SCH (08:46)
[2020-05-24] MEDS: ASCORBIC ACID 500 MG TAB PO SCH (08:46)
[2020-05-24] MEDS: ENOXAPARIN SOD 100 MG/1 ML SYRINGE SC SCH ×2 (08:46→22:37)
--- NOTE | 2020-05-24 09:37 | NUR ---
Received call from [facility] case checker Navya [phone], up dated was given on patients status, patient is on O2 by 5l Oxymizer and clinical packet will be sent to fax # [phone], authorization was given for today #[id number]
--- NOTE | 2020-05-24 09:50 | NUR ---
Paged Dr Guerrero in regards to patient status and possible downgrade.
--- NOTE | 2020-05-24 10:01 | NUR ---
T/C from Dr Guerrero. Updated on patient status. Ok to downgrade to tele, leave le in place, remove femoral TLC, ensure physical therapy sees patient.
[2020-05-24] MEDS: ACCU-CHEK COMFORT CURVE STRIP VI SCH ×2 (10:28→22:27)
[2020-05-24] MEDS: InsuLIN REG 1unit/0.01ml Soln (100units/ml) SC SCH ×2 (10:31→22:36)
--- NOTE | 2020-05-24 10:54 | NUR ---
Left femoral TLC removed with catheter intact. Pressure applied for 10 min and then covered with gauze and tegaderm.
--- NOTE | 2020-05-24 11:03 | NUR ---
Physical therapy at bedside with patient.
--- NOTE | 2020-05-24 11:36 | NUR ---
Received Patient From [facility], Report received from JOSÉ Mccarthy.
--- NOTE | 2020-05-24 11:40 | NUR ---
TRANSFER Report given to Maribeth KUMAR. Patient transferred via bed on tele box and portable O2 with all personal belongings to room 251A.
--- NOTE | 2020-05-24 12:03 | NUR ---
SWALLOW EVALUATED. PATIENT HAS NATURAL TEETH. ALERT AND ABLE TO FOLLOW DIRECTIONS. PATIENT ABLE TO TOLERATE MECHANICAL SOFT DIET TEXTURE WITH THIN LIQUIDS WITH NO OVERT SIGNS OR SYMPTOMS OF ASPIRATION. NURSING NOTIFIED.
[2020-05-24] MEDS ORDERED: VANCOMYCIN 1GM/250ML 250 ML IV SCH (13:00)
--- NOTE | 2020-05-24 15:08 | NUR ---
Nutrition Followup Notes Wt: 87.2 kg P`s successfully extubated was NPO when rounded for ST eval. pt is now advanced to [facility] soft diet with no PO recorded yet per RN doc Est Energy needs: 5456-6947 kcals (17-20 kcal/kgBW), Est Protein needs: 73-92 gms/day (0.8-1.0 gm/kgBW). Will continue to monitor and reassess prn. LABS: CO2 36 H, GLU 146 H, ALB 2.6 L. GI: Pt had 1 BM today per RN doc BS: 12 high risk. Refer to wound assessment report for full details. PES: 1) Increased nutrient needs aeb pt is sedated, intubated, NPO r/t pt with no PO intake 2) Obesity aeb 136% IBW abd BMI of 31.7 kg/m2 r/t energy intake in excess of energy needs 3) Altered nutrition related lab values aeb elev RFTs, low GFR, mod hypoalbuminemia r/t current medical condition Comments Will continue to closely monitor pertinent labs, PO intake, skin status and weight trends. Will f/u in 3-5 days 1) continue assistance with meals. 2) refer to [employer] galley boy on DC. 3) Continue current plan of care
--- NOTE | 2020-05-24 15:29 | NUR ---
Received call from Navya DURAN from [facility], stated she was notified by Dr Guerrero that the patient may be transferred to SNF within the next 2 days, and we would have to find a SNF that takes COVID positive patients, notified Ling MICHAEL
[2020-05-24 16:56] VITALS: BP 105/56
--- NOTE | 2020-05-24 19:22 | NUR ---
OPENING SHIFT NOTE Assumed care of patient. Patient lying in bed without any s/s of respiratory distress. Reports no pain. Patient is currently on Novel Respiratory Isolation for COVID19. Patient is alert and oriented x 3. Bed in lowest position, rails x3 up, brakes locked, and call light within reach. Patient currently on Oxymizer 3.5 L with O2 SPO2 94%. Muro draining to gravity yellow urine. POC discussed with the patient. Instructed to call for assistance as needed. Will continue to monitor q1hr/PRN.
[2020-05-24 22:00] VITALS: BP 119/33
[2020-05-25] MEDS: METOPROLOL TARTRATE 25 MG TAB PO SCH ×3 (01:03→21:35)
[2020-05-25 05:00] VITALS: BP 138/66
[2020-05-25] MEDS: HCTZ 25 MG TAB PO SCH (06:32)
--- NOTE | 2020-05-25 07:13 | NUR ---
CARE ENDORSED TO DAY SHIFT RN. PATIENT DOES NOT DEMONSTRATE ANY S/S OF DISTRESS.
[2020-05-25] MEDS: cefTRIAXone 1GM/50ML D5W 50 ML IV SCH (08:14)
[2020-05-25 08:40] LABS: Calcium 9.7 mg/dL (8.5-10.1)
[2020-05-25 09:00] VITALS: BP 118/61
[2020-05-25] MEDS: AZITHROMYCIN 500MG/ 250ML 250 ML IV SCH (09:05)
[2020-05-25] MEDS: CHOLECALCIFEROL (VITD3) 1,000UNIT=25mCg TAB PO SCH (09:05)
[2020-05-25] MEDS: DexAMETHasone SOD PHOS 10MG/1ML VIAL INJ IV SCH (09:06)
[2020-05-25] MEDS: FAMOTIDINE (10MG/ML) 2ML VL IV SCH ×2 (09:06→21:34)
[2020-05-25] MEDS: LISINOPRIL 20 MG TAB GT SCH (09:07)
[2020-05-25] MEDS: cloNIDine HCL 0.1 MG TAB PO SCH ×2 (09:08→21:34)
[2020-05-25] MEDS: methIMAzole 5 MG TAB PO SCH (09:09)
[2020-05-25] MEDS: ASCORBIC ACID 500 MG TAB PO SCH (09:09)
[2020-05-25] MEDS: ENOXAPARIN SOD 100 MG/1 ML SYRINGE SC SCH (10:00)
[2020-05-25 12:30] VITALS: BP 127/67
[2020-05-25] MEDS: ENOXAPARIN SOD 120 MG/0.8 ML SYRINGE SC SCH ×2 (12:50→21:35)
[2020-05-25] MEDS: ACETAMINOPHEN 325 MG TAB PO PRN (16:52)
[2020-05-25 17:28] VITALS: BP 102/46
--- NOTE | 2020-05-25 18:12 | NUR ---
Le catheter dc'd Order to discontinue le catheter. Le dc'd with clean technique following deflation of balloon. Patient tolerated well with no complaints of pain. Continue care.
--- NOTE | 2020-05-25 18:13 | NUR ---
PATIENT HAD LOOSE BOWEL MOVEMENT.
[2020-05-25 19:11] LABS: Urine Bacteria FEW /hpf (None Seen); Urine Blood 3+ /uL (Negative); Urine Budding Yeast MANY /hpf (None Seen); Urine Hyaline Cast FEW /lpf (0 - 2); Urine Mucus FEW (None Seen); Urine Specific Gravity 1.019 (1.001-1.035); Urine WBC 21 /hpf (0 - 3)
--- NOTE | 2020-05-25 19:25 | NUR ---
Opening Shift Note Assumed care of patient. Patient is awake, alert, and oriented X 4. No S/S of respiratory distress noted, no pain, nausea, vomiting reported. Bed in lowest position, side rail X2 up, brakes locked, call light is within reach. POC discussed with the pt. Patient instructed to call for assistance PRN. Will continue to monitor for changes Q1hr and PRN.
[2020-05-25 22:00] VITALS: BP 107/50
[2020-05-26] VITALS (39 sets, daily range): BP systolic 76–118; BP diastolic 22–56
[2020-05-26 05:33] LABS: Basophils # (auto) 0 10 ^3/uL (0-0.2); Eosinophils # (auto) 0 10 ^3/uL (0-0.8); Lymphocytes # (auto) 1.3 10 ^3/uL (0.4-5.4); Lymphocytes % (auto) 4.8 % (10.0-50.0); Mean Corpuscular Hgb Conc. 30.9 g/dL (32.0-36.0)
[2020-05-26 05:36] LABS: Basophils % (auto) 0.2 % (0.0-2.0); Hematocrit 34.1 % (41.0-53.0); Hemoglobin 10.5 g/dL (13.5-17.5); Mean Corpuscular Volume 80.7 fL (80.0-100.0); Monocytes # (auto) 2.2 10 ^3/uL (0-1.3); Monocytes % (auto) 8.3 % (0.0-12.0); Neutrophils # (auto) 22.9 10 ^3/uL (1.6-8.6); Neutrophils % (auto) 86.7 % (37.0-80.0); Nucleated Red Blood Cells % 0.1 %; Platelet Count (auto) 319 10^3/uL (140-450); Red Blood Cells 4.22 10^6/uL (4.5-5.90); Red Cell Distribution Width 19.4 % (11.8-14.3); White Blood Cell 26.4 10^3/uL (4.4-10.8)
[2020-05-26 05:51] LABS: Albumin 2.8 g/dL (3.4-5.0); CRP High Sensitivity 0.11 mg/dL (< 0.3); Calcium 8.8 mg/dL (8.5-10.1); Potassium 3.3 mmol/L (3.5-5.1)
[2020-05-26 05:54] LABS: BUN/Creatinine Ratio 35.4; Bilirubin, Total 0.9 mg/dL (0.2-1.0); Total Protein 5.6 g/dL (6.4-8.2)
--- NOTE | 2020-05-26 06:50 | NUR ---
CRITICAL LAB VALUE LAB CALLED TO INFORM ABOUT PATIENT CRITICAL VALUE. BUN IS 91. CALLED Catrina PLASCENCIA NEW ORDERS WERE RECEIVED. ORDERS WERE CLARIFIED AND READ BACK. WILL CONTINUE CARE.
[2020-05-26] MEDS: HCTZ 25 MG TAB PO SCH (06:52)
--- NOTE | 2020-05-26 07:30 | NUR ---
ENDORSED CARE TO DAY SHIFT RN. PATIENT RESTING IN BED. NO S/S OF DISTRESS.
[2020-05-26] MEDS ORDERED: PANTOPRAZOLE IV SCH (08:00)
[2020-05-26] MEDS ORDERED: NS IV SCH (08:00)
[2020-05-26] MEDS ORDERED: PANTOPRAZOLE 40 MG/10 ML VIAL INJ IV ONE (08:00)
--- NOTE | 2020-05-26 08:35 | NUR ---
PAGE DR. BONNER RE: CLARIFICATION OF PROTONIX. AWAITING CALL BACK
[2020-05-26 08:55] LABS: Basophils # (auto) 0.1 10 ^3/uL (0-0.2); Basophils % (auto) 0.2 % (0.0-2.0); Eosinophils # (auto) 0 10 ^3/uL (0-0.8); Lymphocytes # (auto) 1.5 10 ^3/uL (0.4-5.4); Mean Corpuscular Hgb Conc. 30.2 g/dL (32.0-36.0); Nucleated Red Blood Cells % 0.1 %
[2020-05-26 08:57] LABS: Hematocrit 34.5 % (41.0-53.0); Hemoglobin 10.4 g/dL (13.5-17.5); Mean Corpuscular Hemoglobin 24.5 pg (28.0-32.0); Mean Corpuscular Volume 81.2 fL (80.0-100.0); Monocytes # (auto) 2.2 10 ^3/uL (0-1.3); Monocytes % (auto) 7.7 % (0.0-12.0); Neutrophils # (auto) 25.6 10 ^3/uL (1.6-8.6); Neutrophils % (auto) 87.1 % (37.0-80.0); Platelet Count (auto) 335 10^3/uL (140-450); Red Blood Cells 4.24 10^6/uL (4.5-5.90); Red Cell Distribution Width 19.3 % (11.8-14.3); White Blood Cell 29.4 10^3/uL (4.4-10.8)
--- NOTE | 2020-05-26 08:58 | NUR ---
SPOKE WITH DR. BONNER RE: PROTONIX CLARIFICATION. NEW ORDERS GIVE/CARRIED OUT.
[2020-05-26] MEDS ORDERED: SODIUM CHLORIDE 0.9% 1,000 ML IV SCH (09:15)
[2020-05-26] MEDS ORDERED: SODIUM CHLORIDE 0.9% 500 ML IV ONE (09:15)
[2020-05-26] MEDS: methIMAzole 5 MG TAB PO SCH (10:00)
[2020-05-26] MEDS: METOPROLOL TARTRATE 25 MG TAB PO SCH ×2 (10:00→21:22)
[2020-05-26] MEDS: LISINOPRIL 20 MG TAB GT SCH (10:00)
[2020-05-26] MEDS: ASCORBIC ACID 500 MG TAB PO SCH (10:00)
[2020-05-26] MEDS: CHOLECALCIFEROL (VITD3) 1,000UNIT=25mCg TAB PO SCH (10:00)
[2020-05-26] MEDS: cloNIDine HCL 0.1 MG TAB PO SCH (10:00)
[2020-05-26] MEDS: FAMOTIDINE (10MG/ML) 2ML VL IV SCH (10:50)
[2020-05-26] MEDS: PANTOPRAZOLE 40 MG/10 ML VIAL INJ IV SCH ×2 (10:50→21:26)
[2020-05-26] MEDS: AZITHROMYCIN 500MG/ 250ML 250 ML IV SCH (10:51)
[2020-05-26] MEDS: cefTRIAXone 1GM/50ML D5W 50 ML IV SCH (11:09)
--- NOTE | 2020-05-26 12:44 | NUR ---
PAGED DR. BONNER RE: BP 87/42 [facility]. AWAITING CALL BACK.
--- NOTE | 2020-05-26 12:50 | NUR ---
RECEIVED CALL FROM DR. BONNER RE:BP 87/42. NEW ORDERS RECEIVED/ CARRIED OUT. WILL CONTINUE TO MONITOR.
[2020-05-26] MEDS ORDERED: CLINIMIX PER PHARMACY 0 ML IV SCH (13:15)
--- NOTE | 2020-05-26 13:15 | NUR ---
NGT Nasogastric tube insertion Patient educated on need for NG tube. All questions addressed. NGT inserted per MD order. Placement verified by aspiration of stomach contents, auscultation. Awaiting chest xray to verify placement .
--- NOTE | 2020-05-26 13:17 | NUR ---
REPORT GAVE REPORT TO JOSÉ MUÑOZ (HOUSE SUP). PATIENT WILL BE TRANSFERRING TO [facility] ROOM 262, WITH CHARGE NURSE JOSÉ SULLIVAN.
[2020-05-26] MEDS ORDERED: NOREPINEPHRINE 8 MG/250ML KIT 250 ML IV ONE (13:27)
[2020-05-26] MEDS: NOREPINEPHRINE 8 MG/250ML KIT 250 ML IV SCH (14:00)
[2020-05-26] MEDS ORDERED: NOREPINEPHRINE 8 MG/250ML KIT 250 ML IV SCH (14:00)
--- NOTE | 2020-05-26 14:00 | NUR ---
Admit to [facility] as ICU status. RANCHO JAIMEadmitted to [facility] via bed on hall monitor, and portable 02. Patient connected to unit monitoring and oxygen, and weighed by bedscale. Patient oriented to Grisel Rhodes primary RN, unit, room, bed, and unit policies regarding patient care and visiting hours. All questions and concerns addressed, patient verbalized understanding. NOTE: pt. on 3l oxymizer spo2 93%.NGT to right nare in situ with blood tinged at the tubing. Connected to lis. Initial bp 89/42 , Dr. Guerrero at the bedside with new orders made and carried out. Pt temp 100.3 axillary - tylenol given as ordered. Will cont to monitor. Family notified of pt status.
--- NOTE | 2020-05-26 14:01 | NUR ---
PATIENT TRANSFERRED TO [facility].
--- NOTE | 2020-05-26 14:05 | NUR ---
levophed started as ordered. Will cont to monitor.
[2020-05-26 14:06] LABS: Hematocrit 26.7 % (41.0-53.0); Hemoglobin 8.2 g/dL (13.5-17.5); Mean Corpuscular Hemoglobin 25.2 pg (28.0-32.0); Mean Corpuscular Hgb Conc. 30.8 g/dL (32.0-36.0); Mean Corpuscular Volume 81.7 fL (80.0-100.0); Platelet Count (auto) 278 10^3/uL (140-450); Red Blood Cells 3.27 10^6/uL (4.5-5.90); Red Cell Distribution Width 19.3 % (11.8-14.3); White Blood Cell 26.9 10^3/uL (4.4-10.8)
[2020-05-26 14:08] LABS: Band Neutrophils % (manual) 0; Basophils % (manual) 0 (0.0-2.0); Blast Cells 0; Eosinophils % (manual) 0 (0-7); Metamyelocytes % 0; Myelocytes % 0; Promyelocytes % 0
--- NOTE | 2020-05-26 14:11 | NUR ---
OPENING NOTE ASSUMED CARE OF PATIENT. PATIENT IS LAYING IN BED SLEEPING. NO S/S OF SOB DISTRESS NOTED. BED SET TO LOWEST POSITION LOCKED BEDSIDE RAILS UP X2, CALL LIGHT WITHIN REACH. WILL CONTINUE TO MONITOR FOR CHANGES. Addendum: 05/26/20 at 1741 by Jo Ann Soto RN WRONG TIME. CORRECT TIME [id number]
--- NOTE | 2020-05-26 14:15 | NUR ---
Le catheter insertion Patient assessed and determined to be in need of le catheter. Order obtained from MD. Patient educated on catheter and reason for insertion. All questions answered. Le catheter 16 guage Bulgarian inserted with clean sterile technique. Patient tolerated well.
[2020-05-26 14:18] LABS: Lymphocytes % (manual) 7 (10.0-50.0); Monocytes % (manual) 10 (0-12); Reactive Lymphocytes 1
[2020-05-26 14:23] LABS: Lactic Acid w/Reflex 2.1 mmol/L (0.4-2.0)
[2020-05-26] MEDS ORDERED: SODIUM CHLORIDE 0.9% 1,000 ML IV ONE ×3 (14:45→18:45)
[2020-05-26] MEDS ORDERED: POTASSIUM CHL 20MEQ/100ML 100 ML IV ONE (16:30)
[2020-05-26 16:39] LABS: Hemoglobin 8.7 g/dL (13.5-17.5)
[2020-05-26 16:41] LABS: Hematocrit 28.1 % (41.0-53.0); Mean Corpuscular Hemoglobin 25.5 pg (28.0-32.0); Mean Corpuscular Volume 82.3 fL (80.0-100.0); Platelet Count (auto) 301 10^3/uL (140-450); Red Blood Cells 3.41 10^6/uL (4.5-5.90); Red Cell Distribution Width 19.4 % (11.8-14.3)
[2020-05-26 16:48] LABS: White Blood Cell 34.7 10^3/uL (4.4-10.8)
[2020-05-26 16:49] LABS: Band Neutrophils % (manual) 0; Basophils % (manual) 0 (0.0-2.0); Blast Cells 0; Eosinophils % (manual) 0 (0-7); Metamyelocytes % 0; Myelocytes % 0; Promyelocytes % 0; Reactive Lymphocytes 0
[2020-05-26 17:17] LABS: Lymphocytes % (manual) 4 (10.0-50.0); Monocytes % (manual) 11 (0-12)
--- NOTE | 2020-05-26 18:30 | NUR ---
HAD A BIG BLACK WATERY STOOL. SPECIMEN SEND FOR C- DIFF PER DR BONNER'S ORDER
--- NOTE | 2020-05-26 18:32 | NUR ---
Called/paged Dr. BONNER called re:Abnormal labs and I and O . Waiting for call back. Continue care.
--- NOTE | 2020-05-26 18:35 | NUR ---
returned call Dr. Guerrero returned call, updated on patient status and reason for call, orders received. Continue care.
--- NOTE | 2020-05-26 18:40 | NUR ---
BOLUS OF 2 L STARTED . WILL CONT TO MONITOR.
[2020-05-26] MEDS: SODIUM CHLORIDE 0.9% 1,000 ML IV SCH (19:00)
--- NOTE | 2020-05-26 19:00 | NUR ---
REPORT GIVEN TO JOSÉ SAGASTUME .
--- NOTE | 2020-05-26 19:00 | NUR ---
Opening Shift Note Assumed care of patient, awake and alert. No S/S of distress/SOB or pain. Instructed on POC and to call for assist PRN, will continue to monitor for changes Q1hr and PRN. Patient currently on Levo @ 16. Patient isolation for COVID-19.
[2020-05-26] MEDS ORDERED: AMINO ACID INFUSION IN D5W 2,000 ML IV NR (20:00)
[2020-05-26] MEDS: PHENYLEPHRINE IV 250 ML IV SCH (22:38)
--- NOTE | 2020-05-26 22:40 | NUR ---
Primary MD paged: RN paged primary MD d/t patient continuing with pressors for blood pressure management and almost reaching limit on levophed. Charlene Patton returned page and new orders were received. Dr. Clark asked if patient had a PICC line or Central line d/t patient receiving pressors and MD was made aware that patient has a PICC line consult but did not get a PICC line placed today. MD informed RN to place an order for a Central line and have hospitalist or ER doctor insert line if possible d/t patient receiving multiple pressors.
[2020-05-26] MEDS: VASOPRESSIN 50 UNITS in D5W 5% 247.5 ML IV SCH (22:45)
--- NOTE | 2020-05-26 22:50 | NUR ---
Hospitalist paged: Hospitalist was paged per Dr. Clark request for Central line placement. Dr. Gupta was informed of patient's condition and Dr. Clark request but Dr. Gupta refused to insert Central line.
--- NOTE | 2020-05-26 22:55 | NUR ---
ER physician paged: RN paged ER physician in regards to a central line placement. ER physician stated he will attempt to insert central line if he has enough time tonight after ER is not to busy.
--- NOTE | 2020-05-26 23:30 | NUR ---
RN spoke with daughter and telephone consent was obtained for Central line placement per MD orders. Other RN verified telephone consent.
[2020-05-27] VITALS (85 sets, daily range): BP systolic 80–162; BP diastolic 14–80
[2020-05-27] MEDS: PHENYLEPHRINE IV 250 ML IV SCH ×3 (00:46→13:34)
[2020-05-27] MEDS: SODIUM CHLORIDE 0.9% 1,000 ML IV SCH (01:00)
--- NOTE | 2020-05-27 02:38 | NUR ---
BM: Patient had a BM. RN provided harlan care and linen change was performed. Patient repositioned for comfort. Patient tolerated intervention well.
[2020-05-27] MEDS ORDERED: VASOPRESSIN 20 UNIT/ML ONE (03:37)
[2020-05-27 04:12] LABS: Hematocrit 21.6 % (41.0-53.0); Mean Corpuscular Hemoglobin 24.9 pg (28.0-32.0); Mean Corpuscular Hgb Conc. 28.9 g/dL (32.0-36.0); Mean Corpuscular Volume 86.3 fL (80.0-100.0); Platelet Count (auto) 295 10^3/uL (140-450); Red Cell Distribution Width 19.9 % (11.8-14.3)
[2020-05-27 04:14] LABS: Hemoglobin 6.2 g/dL (13.5-17.5); White Blood Cell 32.8 10^3/uL (4.4-10.8)
[2020-05-27 04:15] LABS: Band Neutrophils % (manual) 0; Basophils % (manual) 0 (0.0-2.0); Blast Cells 0; Eosinophils % (manual) 0 (0-7); Metamyelocytes % 0; Myelocytes % 0; Promyelocytes % 0; Reactive Lymphocytes 0
[2020-05-27] MEDS ORDERED: SODIUM BICARBONATE 8.4 % INJ 50ML VIAL IV ONE ×4 (04:23→13:30)
--- NOTE | 2020-05-27 04:30 | NUR ---
Primary MD paged: Primary MD paged to make aware of patient condition and situation. New orders received and verified.
[2020-05-27 04:34] LABS: Calcium 6.8 mg/dL (8.5-10.1); Potassium 4.3 mmol/L (3.5-5.1)
[2020-05-27 04:37] LABS: BUN/Creatinine Ratio 25.7; Bilirubin, Total 0.7 mg/dL (0.2-1.0); CRP High Sensitivity 0.71 mg/dL (< 0.3); Total Protein 3.9 g/dL (6.4-8.2)
[2020-05-27 04:38] LABS: Magnesium 2.7 mg/dL (1.6-2.6)
[2020-05-27 04:47] LABS: Pre Albumin 23.6 mg/dL (20.0-40.0)
--- NOTE | 2020-05-27 04:52 | NUR ---
Family: Family called and made aware of patient's condition and situation. Consent for blood transfusion obtained. Patient is declining rapidly and MD wants family to visit patient.
[2020-05-27] MEDS: EPINEPHrine HCL 250 ML IV SCH (04:57)
--- NOTE | 2020-05-27 05:00 | NUR ---
RN SPOKE WITH DR. ALMONTE IN PERSON REGARDING PATIENT'S CONDITION AND PATIENT NOW ON MULTIPLE PRESSORS MAXED OUT. DR. ALMONTE INFORMED OF Kizzy BROWNLEE REQUEST FOR HIM TO INSERT CENTRAL LINE DUE TO PATIENT'S CONDITION AND RAPID DECLINE AND MULTIPLE MEDICATIONS, INCLUDING BLOOD TRANSFUSIONS THAT HAVE BEEN ORDERED. PER DR. ALMONTE, "IF HE WANTS A CENTRAL LINE, HE CAN COME DO IT HIMSELF, IF THE PATIENT MAKES IT THAT LONG". DR. ALMONTE CONTINUES TO REFUSE TO PLACE CENTRAL LINE AT THIS TIME, DUE TO PATIENT NOT BEING A HOSPITALIST PATIENT AND STATING HE IS NOT GOING TO EXPOSE HIMSELF TO A COVID PATIENT FOR ANOTHER MD.
--- NOTE | 2020-05-27 05:10 | NUR ---
First unit of blood started.
[2020-05-27 05:24] LABS: Phosphorus 9.8 mg/dL (2.5-4.90)
--- NOTE | 2020-05-27 05:24 | NUR ---
WORK DISTRIBUTOR REQUEST MADE FOR ATTEMPT TO PLACE EJ, I WILL ATTEMPT TO PLACE EJ
[2020-05-27] MEDS ORDERED: EPINEPHrine HCL 250 ML IV ONE (05:29)
--- NOTE | 2020-05-27 05:47 | NUR ---
Dr. Robb dc per MD request d/t patient has a Nephro consult pending.
--- NOTE | 2020-05-27 05:53 | NUR ---
IO started in left upper farias by ER nurse.
--- NOTE | 2020-05-27 05:54 | NUR ---
Primary MD paged for update on patient status and update on central line.
--- NOTE | 2020-05-27 05:59 | NUR ---
CARTOGRAPHY TECHNICIAN ASSESSMENT FO EJ PLACEMENT PATIENT IS VERY STIFF HIS ROM IS VERY LIMITED IN HIS NECK UNABLE TO VISUALIZE VESSELS, X3 FAILED ATTEMPTS MADE AT IV ACCESS TO THE LEFT HAND, LEFT WRIST AND LEFT FOOT. THE DECISION WAS MADE TO PLACE A I/O, 25MM I/O PLACED X1 ATTEMPT TO THE LEFT PROXIMAL TIBIA WITH GREAT RETURN AND EASILY FLUSHED.
[2020-05-27] MEDS: HCTZ 25 MG TAB PO SCH (06:05)
--- NOTE | 2020-05-27 06:10 | NUR ---
Kizzy BROWNLEE RETURNED PAGE AND WAS MADE AWARE OF HOSPITALIST REFUSAL TO PLACE CENTRAL LINE. MADE AWARE OF IO ACCESS THAT WAS OBTAINED BY [facility] NURSE PRACTITIONER. RN IS TO CONTINUE TO ATTEMPT TO HAVE CENTRAL PLACED SOSA.
--- NOTE | 2020-05-27 06:16 | NUR ---
Pharmacy: RN called on-call pharmacy to verify that pressors can run into an IO. Per pharmacist, Levo, Vaso, Kenroy and Epi can run into an IO. However, pharmacist recommends PICC line or Central line for correction use.
--- NOTE | 2020-05-27 06:25 | NUR ---
First unit of blood transfused. Second unit started.
--- NOTE | 2020-05-27 06:44 | NUR ---
RESP O2 CHECK: HR 89, RR 30, SPO2 94% ON 3L OXYMIZER. RN AT BEDSIDE.
[2020-05-27 06:59] LABS: Lymphocytes % (manual) 14 (10.0-50.0); Monocytes % (manual) 3 (0-12)
--- NOTE | 2020-05-27 08:10 | NUR ---
FAMILY PT DAUGHTER TASNEEM CALLED REGARDING STATUS. FAMILY UPDATED. FAMILY WANTS TO VISIT. WILL ASK CHARGE AND FIRMWARE DEVELOPER REGARDING VISITATION.
[2020-05-27] MEDS ORDERED: SODIUM BICARBONATE 50ML VIAL 100 ML in D5W 5% 1,000 ML IV SCH (08:45)
[2020-05-27] MEDS ORDERED: ALBUMIN 25% 100 ML IV ONE (08:45)
--- NOTE | 2020-05-27 08:48 | NUR ---
NEPHROLOGY RETURNED PAGE REGARDING LABS AND URINE OUTPUT. AWARE. NEW ORDERS RECEIVED.
[2020-05-27] MEDS: methIMAzole 5 MG TAB PO SCH (09:09)
[2020-05-27] MEDS: PANTOPRAZOLE 40 MG/10 ML VIAL INJ IV SCH ×2 (09:10→22:00)
[2020-05-27] MEDS: CHOLECALCIFEROL (VITD3) 1,000UNIT=25mCg TAB PO SCH ×2 (09:10→10:00)
[2020-05-27] MEDS: ASCORBIC ACID 500 MG TAB PO SCH ×2 (09:10→10:00)
--- NOTE | 2020-05-27 10:30 | NUR ---
MEDICATION IVANZ IVPB NOT IN PYXIS. PHARMACY NOTIFIED. AWAITING IV ANTIBIOTIC.
--- NOTE | 2020-05-27 10:44 | NUR ---
ELIMINATION PATIENT HAD SMALL TARRY BOWEL MOVEMENT. ZORAN CARE PERFORMED, NEW CHUX PLACED. PATIENT REPOSITIONED ON SIDE. PT VERY WEAK. TOLERATED ACTIVITY FAIR. VS REMAINING STABLE AT THIS TIME. WILL CONTINUE TO MONITOR.
--- NOTE | 2020-05-27 11:00 | NUR ---
FAMILY SPOKE WITH DAUGHTER TASNEEM REGARDING PT STATUS AND VISITATION.
--- NOTE | 2020-05-27 11:29 | NUR ---
[facility] CALLED FOR UPDATE. REQUESTING PROGRESS NOTES TO BE FAXED TO [facility] [phone]
--- NOTE | 2020-05-27 11:30 | NUR ---
AGONAL BREATHING/DESATURATION PATIENT WORK OF BREATHING CHANGED. PT APPEARS TO BE AGONAL BREATHING, OXYGEN SATURATIONS 88%. INCREASED TO 10L OXYMIZER. OXYGEN SATURATION STILL TRENDING 88-91. OXYGEN INCREASED TO 15 L. RT AT BEDSIDE OBTAINING ABG. WILDLIFE MANAGER AT BEDSIDE FOR BLOOD DRAW.
--- NOTE | 2020-05-27 11:35 | NUR ---
FAMILY PT DAUGHTER AT BEDSIDE.
[2020-05-27] MEDS: NOREPINEPHRINE 8 MG/250ML KIT 250 ML IV SCH (11:37)
[2020-05-27 11:45] LABS: Protein, Urine 165.8 mg/dL (0.0-11.9)
--- NOTE | 2020-05-27 11:55 | NUR ---
Respiratory note: UNABLE TO REACH DR ANDERSON. LEFT A PHONE MESSAGE WITH DR ANDERSON REPORTING ABG RESULTS ON 10 OXYMIZER: PH 6.90 PCO2 37.7 PAO2 67 HCO3 7.3 BE -24.4 JOSÉ MILLER AWARE OF ABG RESULTS. JOSÉ MILLER ALSO AWAITING CALL BACK.
[2020-05-27] MEDS: ERTAPENEM SOD INJ 0.5 GM in SODIUM CHL 0.9% 50 ML IV SCH (12:00)
[2020-05-27 12:07] LABS: Urine Bacteria FEW /hpf (None Seen); Urine Blood 2+ /uL (Negative); Urine Budding Yeast LOADED /hpf (None Seen); Urine Mucus FEW (None Seen); Urine WBC 80 /hpf (0 - 3)
--- NOTE | 2020-05-27 12:10 | NUR ---
PAGED PAGED REGARDING ABG RESULT AND INCREASE IN OXYGEN REQUIREMENT. AWAITING CALL BACK.
--- NOTE | 2020-05-27 12:17 | NUR ---
PAGED PAGED REGARDING PATIENTS STATUS AND ABG. AWAITING CALL BACK.
--- NOTE | 2020-05-27 12:50 | NUR ---
MD UPDATE CALLED FOR UPDATE. MD AWARE OF LABS, BLEEDINGS, AND DECREASE HEMODYNAMIC STABILITY. ORDERS OBTAINED FOR BICARB. PT FAMILY WANTS TO KEEP PT FULL CODE AT THIS TIME.
--- NOTE | 2020-05-27 13:20 | NUR ---
MD UPDATE RETURNED PAGE. AWARE OF ABG RESULTS. MD WOULD LIKE MORE BICARB TO BE GIVEN, INCREASE IV FLUID RATE, AND REPEAT ABG.
[2020-05-27] MEDS ORDERED: SODIUM BICARBONATE 50ML VIAL 150 ML in D5W 5% 1,000 ML IV SCH (13:30)
[2020-05-27] MEDS: SODIUM BICARBONATE 50ML VIAL 150 ML in D5W 5% 1,000 ML IV SCH ×2 (14:13→21:00)
--- NOTE | 2020-05-27 14:35 | NUR ---
IV IV access obtained, via clean sterile technique by inserting 18 gauge catheter at left IJ after 1 attempt(s). IV secured properly. No trauma to site. Patient tolerated well.
[2020-05-27 14:43] LABS: Partial Thromboplastin Time 38.8 sec (23.64-32.05)
[2020-05-27 14:46] LABS: INR 3.39 (0.9-1.15)
--- NOTE | 2020-05-27 14:51 | NUR ---
Consult/Nutrition Followup Notes Wt: 85.0 kg Pt intubated and sedated per MD note. Pt possible to start TPN. Pt is covid positive in the covid wing. Pt failed CPAP trial per RN and pt is metabolic acidosis per MD note. If TPN initiated consider TPN to meet >75% of needs Est Energy needs: 2665-5004 kcals (17-20 kcal/kgBW), Est Protein needs: 51-64 gms/day (0.6-0.75 gm/kgBW r/t elevated RFTs). Will continue to monitor and reassess prn. LABS: BUN 110H, Creat 4.28H, Phos 9.8H, Alb 2.0L, Ca 6.8L GI: Pt had 2 BMs today per RN doc BS: 15 mod risk. Refer to wound assessment report for full details. PES: 1) Increased nutrient needs aeb pt is sedated, intubated, NPO r/t pt with no PO intake 2) Obesity aeb 136% IBW abd BMI of 31.7 kg/m2 r/t energy intake in excess of energy needs 3) Altered nutrition related lab values aeb elev RFTs, low GFR, mod hypoalbuminemia r/t current medical condition Comments Will continue to closely monitor pertinent labs, PO intake, skin status and weight trends. Will f/u in 2-3 days 1) continue assistance with meals. 2) refer to OPD on DC. 3) Continue current plan of care
[2020-05-27 14:58] LABS: Hematocrit 21.7 % (41.0-53.0)
[2020-05-27 15:18] LABS: Hemoglobin 6.9 g/dL (13.5-17.5)
--- NOTE | 2020-05-27 15:32 | NUR ---
PAGED PAGED REGARDING HGB AND HCT LEVEL WELL COAGULATION PANEL. AWAITING CALL BACK FOR NEW ORDERS. WILL CONTINUE TO MONITOR.
--- NOTE | 2020-05-27 15:55 | NUR ---
RESP PT PLACED ON 15 L NRB AND 12 L OXYMIZER. JOSÉ MILLER AT BEDSIDE.
--- NOTE | 2020-05-27 16:09 | NUR ---
MD CALL DR BONNER CALLED TO ORDER 2 UNITS PRBC FOR HGB 6.9 AND REPEAT H&H AFTER BLOOD COMPLETED. ALSO MD INFORMED PATIENT IS UNABLE TO HAVE PICC LINE PLACED DUE TO INCREASED INR OF 3.39. PER MD ADMINISTER VITAMIN K SUBQ 10MG X2 DOSES. PRIMARY NURSE PAUL INFORMED OF MD ORDERS. ALL ORDERS NOTED IN CHART.
--- NOTE | 2020-05-27 16:09 | NUR ---
PAGED PAGED REGARDING NEW ABG RESULTS. AWAITING CALL BACK. PT PLACED ON NON-REBREATHER MASK WELL HIGH FLOW. OXYGEN SATURATION 98%.
--- NOTE | 2020-05-27 16:18 | NUR ---
GI CONSULT GI CONSULT CALLED TO Maikel WOLFE LINE INSTALLER TROLLEY.
--- NOTE | 2020-05-27 16:31 | NUR ---
PAGED PAGED REGARDING BICARB LEVEL ON ABG. AWAITING CALL BACK.
--- NOTE | 2020-05-27 16:48 | NUR ---
PAGED CALLED REGARDING ABG RESULTS. STATED THAT NO MEDICATION INTERVENTION SHOULD BE GIVEN AT THIS TIME. PT SHOULD BE INTUBATED. NOTIFIED . AWAITING CALL BACK. PT BECOMING MORE NON-RESPONSIVE TO STIMULI. PT HAS ELEVATED RESPIRATORY RATE 30-38. OXYGEN SATURATION 96-98%. AWAITING CALL BACK.
--- NOTE | 2020-05-27 17:28 | NUR ---
Midline Placement: Patient educated on need for midline placement. All risks and benefits explained and all questions and concerns addresses prior to procedure. 18g/10cm midline inserted via LEFT BASILIC vein using Ultrasound. Sterile technique utilized. Blood return obtained from THE lumen and flushed easily with NS using proper technique. Midline secured with saline lock; biodisc and occlusive dressing applied. Primary RN notified. Midline lot # [id number].
[2020-05-27] MEDS ORDERED: MIDAZOLAM HCL 1MG/1ML-2 ML VIAL ONE (17:42)
[2020-05-27] MEDS: MIDAZOLAM DRIP 50 mg/50mL 50 ML IV SCH ×2 (17:49→19:30)
--- NOTE | 2020-05-27 17:49 | NUR ---
ICU PT INTUBATED NOTIFIED OF ABG RESULTS AND NEURO STATUS. MD REQUESTING PT TO BE INTUBATED BY ER DOCTOR. PAGED. AT BEDSIDE, UPDATED ON PATIENT STATUS. MD AWARE, PT INTUBATED BY MD AND PLACED ON MECHANICAL VENTILATION BY RT. CXR OBTAINED FOR PLACEMENT CONFIRMATION. LUNG SOUNDS NOTED ANTERIORLY. OXYGEN SATURATION 100%. NO DISTRESS. ORDERS OBTAINED FOR VERSED DRIP FOR SEDATION. I
--- NOTE | 2020-05-27 18:47 | NUR ---
FAMILY UPDATED PT DAUGHTER ON INTUBATION AND CURRENT HEMODYNAMIC STATUS. ALL QUESTIONS AND CONCERNS ADDRESSED.
--- NOTE | 2020-05-27 19:00 | NUR ---
Opening shift note: Primary RN received report on patient. Pt intubated ETT 8/24cm @ LL, VENT settings: AC 16, TV 500, FIO2 100%, PEEP 5, O2 99%, bilateral lungs diminished and mildly congested. NGT in right nare to LIS. Patient currently has IV to right hand, left AC, midline to left upper arm and IO to left farias. Muro catheter draining via gravity with yellow urine. Safety precautions in place. Will continue to monitor. Patient on isolation for COVID-19.
--- NOTE | 2020-05-27 19:10 | NUR ---
Respiratory note: PT RR NOTED AT 37 BPM ON VENTILATOR. RN MADE AWARE AND SEDATION INCREASED. WILL RETURN FOR ABG.
--- NOTE | 2020-05-27 19:15 | NUR ---
Tarik called: Tarik called and order had been received for protonix drip to be implemented. Per MD, start protonix drip after blood transfusions have been completed.
--- NOTE | 2020-05-27 19:16 | NUR ---
REPORT REPORT GIVEN TO MITESH BLACKMON ENDORSE.
[2020-05-27] MEDS: PHYTONADIONE (VIT K)10 MG/ML 1ML VIAL SUBCUT SCH ×2 (19:35→23:57)
[2020-05-27] MEDS: AMINO ACID INFUSION IN D5W 2,000 ML IV SCH (20:00)
--- NOTE | 2020-05-27 20:00 | NUR ---
Concrete Saw Operator at bedside rounding on patient. New order received for Fentanyl if patient requires more sedation. Concrete Saw Operator entering patients room to insert central line.
[2020-05-27] MEDS: fentaNYL Drip 2500mCg/250mlNS 250 ML IV SCH (20:18)
--- NOTE | 2020-05-27 20:20 | NUR ---
Central line to right IJ inserted by alpine guide. RN at bedside assisting. Order received for STAT CXR to confirm placement. Per alpine guide, once placement confirmed, okay to use Central line. Order for CXR placed. Patient tolerated line placement well.
--- NOTE | 2020-05-27 20:45 | NUR ---
First blood transfusion started. No adverse reactions or signs of distress noted at this time. RN will continue to monitor and assess.
--- NOTE | 2020-05-27 20:55 | NUR ---
Family: Family called. Password verified. Family updated on patient condition and plan of care.
--- NOTE | 2020-05-27 22:04 | NUR ---
Tarik: Dr. Montanez called primary RN with new orders for patient.
[2020-05-27] MEDS: VASOPRESSIN 50 UNITS in D5W 5% 247.5 ML IV SCH (22:45)
--- NOTE | 2020-05-27 22:45 | NUR ---
Second unit: Second unit of blood started.
[2020-05-27] MEDS: PANTOPRAZOLE 40mg/50ML NS AE 50 ML IV SCH (23:00)
[2020-05-28] VITALS (98 sets, daily range): BP systolic 88–153; BP diastolic 35–65
[2020-05-28] MEDS: PANTOPRAZOLE 40mg/50ML NS AE 50 ML IV SCH ×5 (00:15→20:00)
[2020-05-28] MEDS: fentaNYL Drip 2500mCg/250mlNS 250 ML IV SCH ×2 (01:00→18:06)
--- NOTE | 2020-05-28 01:00 | NUR ---
IO access D/C'd d/t patient now having Central line access. Catheter fully intact. Patient tolerated intervention well with no s/s of discomfort or distress.
--- NOTE | 2020-05-28 02:00 | NUR ---
BM: Patient had a large loose bloody BM. RN provided harlan care and linen change. Patient tolerated nursing intervention well.
--- NOTE | 2020-05-28 02:15 | NUR ---
BM: Patient had a small loose bloody BM. RN provided harlan care and linen change. Patient tolerated nursing intervention well.
--- NOTE | 2020-05-28 02:30 | NUR ---
BM: Patient had a very small loose bloody BM. Rectal tube was inserted d/t patient's skin integrity being at risk for breakdown d/t watery stools. RN provided harlan care and linen change. Patient tolerated nursing intervention well.
[2020-05-28] MEDS: AMINO ACID INFUSION IN D5W 2,000 ML IV SCH (04:00)
[2020-05-28] MEDS: EPINEPHrine HCL 250 ML IV SCH (04:28)
[2020-05-28] MEDS: SODIUM BICARBONATE 50ML VIAL 150 ML in D5W 5% 1,000 ML IV SCH ×3 (04:50→20:00)
[2020-05-28 05:28] LABS: Basophils # (auto) 0 10 ^3/uL (0-0.2); Basophils % (auto) 0.2 % (0.0-2.0); Eosinophils # (auto) 0.2 10 ^3/uL (0-0.8); Eosinophils % (auto) 0.8 % (0.0-7.0); Hematocrit 28.1 % (41.0-53.0); Hemoglobin 9.2 g/dL (13.5-17.5); Lymphocytes # (auto) 1.7 10 ^3/uL (0.4-5.4); Mean Corpuscular Hemoglobin 29.8 pg (28.0-32.0); Mean Corpuscular Hgb Conc. 32.8 g/dL (32.0-36.0); Mean Corpuscular Volume 90.9 fL (80.0-100.0); Monocytes # (auto) 0.7 10 ^3/uL (0-1.3); Monocytes % (auto) 2.6 % (0.0-12.0); Neutrophils # (auto) 22.4 10 ^3/uL (1.6-8.6); Neutrophils % (auto) 89.4 % (37.0-80.0); Platelet Count (auto) 102 10^3/uL (140-450); Red Blood Cells 3.09 10^6/uL (4.5-5.90); Red Cell Distribution Width 16.3 % (11.8-14.3)
[2020-05-28 05:29] LABS: Nucleated Red Blood Cells % 3.4 %
[2020-05-28 05:30] LABS: White Blood Cell 24.7 10^3/uL (4.4-10.8)
[2020-05-28 05:39] LABS: Potassium 4.5 mmol/L (3.5-5.1)
[2020-05-28 05:44] LABS: INR 2.02 (0.9-1.15); Partial Thromboplastin Time 38.6 sec (23.64-32.05)
[2020-05-28 05:56] LABS: Albumin 2.1 g/dL (3.4-5.0); Bilirubin, Total 1.2 mg/dL (0.2-1.0); Total Protein 3.7 g/dL (6.4-8.2)
[2020-05-28 06:23] LABS: BUN/Creatinine Ratio 23.9
[2020-05-28 06:25] LABS: Calcium 5.5 mg/dL (8.5-10.1)
--- NOTE | 2020-05-28 06:33 | NUR ---
Dr. Robb dc d/t critical lab values.
--- NOTE | 2020-05-28 06:48 | NUR ---
Family: Family called, password was verified. Daughter "Hannah" was updated on patient condition and situation. All questions and concerns were answered. Family pleased with update.
[2020-05-28] MEDS: PHENYLEPHRINE IV 250 ML IV SCH ×2 (07:58→16:28)
--- NOTE | 2020-05-28 08:25 | NUR ---
Respiratory note: LM FOR DR ARAUJO TO PLEASER RETURN MY CALL REGARDING PT CRITICAL ABG VALUES. JOSÉ CHOUDHURY. WILL CALL BACK.
--- NOTE | 2020-05-28 08:36 | NUR ---
Respiratory note: DR ANDERSON RETURNED MY CALL, AND WAS READ PT CRITICAL ABG VALUES. NO NEW VENT CHANGES ORDERED AT THIS TIME. DR ANDERSON SAID TO INCREASE FIO2, TO MAINTAIN SPO2>92%. RN MADE AWARE.
[2020-05-28] MEDS: NOREPINEPHRINE 8 MG/250ML KIT 250 ML IV SCH ×2 (08:40→13:28)
--- NOTE | 2020-05-28 09:52 | NUR ---
Resumed care at 0720, orders reviewed and ongoing assessments being done. Being treated for multiple problems and is intubated and sedated. Covid-19 positive and isolation per policy and following protocols. Sedated at this time. Upon assessment deeply sedated with impaired gag reflex and not able to open eyes or follow any commands. Did display some facial retraction when giving oral care. Tapering down Versed gtt to obtain Rass of -3. Abdomen is large and firm and distended. NGT to right nare and connected to LIS, collecting dark brown/burgundy gastric content. Flexi/Seal rectal tube in place also collecting dark brown/burgundy loose stool. Whole body edematous even face. Low urine output, doctor Robb aware of abnormal chemistry. Phoned in at 0810 and Lissett KUMAR spoke to him and forward am chemistry results.
[2020-05-28] MEDS: methIMAzole 5 MG TAB PO SCH (10:00)
[2020-05-28] MEDS: PANTOPRAZOLE 40 MG/10 ML VIAL INJ IV SCH ×2 (10:00→22:00)
[2020-05-28] MEDS: CHOLECALCIFEROL (VITD3) 1,000UNIT=25mCg TAB PO SCH ×2 (10:00→10:12)
[2020-05-28] MEDS: ASCORBIC ACID 500 MG TAB PO SCH ×2 (10:00→10:11)
[2020-05-28] MEDS: ERTAPENEM SOD INJ 0.5 GM in SODIUM CHL 0.9% 50 ML IV SCH (11:10)
--- NOTE | 2020-05-28 12:11 | NUR ---
Held scheduled Ascorbic Acid, Cholecalciferol and Methimazole this am due to GIB. Maintaining NGT to LIS.
[2020-05-28] MEDS: MIDAZOLAM DRIP 50 mg/50mL 50 ML IV SCH (12:58)
[2020-05-28] MEDS ORDERED: BUMETANIDE 2.5mg/10ml (0.25 mg/ml) INJ IV ONE (13:30)
[2020-05-28] MEDS: VASOPRESSIN 50 UNITS in D5W 5% 247.5 ML IV SCH (14:27)
[2020-05-28] MEDS ORDERED: BUMETANIDE 1mg/4ml VIAL (0.25mg/ml) IV ONE (15:30)
--- NOTE | 2020-05-28 15:39 | NUR ---
D/C planning Regarding social service consult for SNF placement. Faxed clinical information to contracted facilities with health plan who are taking (+) COVID patients. Per Representatives with [facility], [facility], [facility] and [facility] there is no male bed available at this time. Will contact them in the morning.
[2020-05-28] MEDS: FUROSEMIDE INJECTION 100 MG in D5W 5% 100 ML IV SCH ×2 (15:55→19:26)
[2020-05-28] MEDS ORDERED: DIGOXIN (250MCG/ML) 2 ML AMPULE IV ONE (16:30)
[2020-05-28] MEDS ORDERED: DIGOXIN (250MCG/ML) 2 ML AMPULE ONE (16:30)
--- NOTE | 2020-05-28 17:02 | NUR ---
Dr. Lozano, water technician rounded at 1420. Discussed condition and plan of care. Ordered a Lasix infusion. Currently running at 20mg/hour. Bumex also given today. Weaned off Versed gtt, unresponsive with a Rass -5. Limbs are flaccid with no gag reflex. Cardiac monitored alarmed, increase HR >130 sinus-tachycardia. Progressed to AFIB RVR, into the 150's. (1449 pm-1453pm). Contacted Dr. Driver at 1615 and spoke to him via phone. Reviewed patient information and obtained orders. Per Dr. Driver restart Phenylephrine and try to wean off Levophed and Vasopressin if appropriated. Digoxin IVP given per ordered. Remains in [id number]'s. Dr. Guerrero phoned in at 1620. Discussed condition and reviewed plan of care. Per Dr. Guerrero, Dr. Belgica Clark will round later today.
--- NOTE | 2020-05-28 19:00 | NUR ---
Opening shift note: Primary RN received report on patient. Pt remains intubated ETT 8/24cm @ LL, VENT settings: AC 16, TV 500, FIO2 90%, PEEP 5, O2 95%, bilateral lungs diminished, coarse and mildly wheezy. NGT in right nare to LIS. Patient currently has IV to right hand, left AC, midline to left upper arm and Right IJ Central TLC. Muro catheter draining via gravity with yellow urine. Safety precautions in place. Will continue to monitor. Patient on isolation for COVID-19. Patient remains in critical condition and on multiple drips, see IV spread sheet.
--- NOTE | 2020-05-28 19:09 | NUR ---
Dr. Lundy rounded at 1805. Discussed condition and plan of care. Continue current plan of care. Contacted daughter Kesha and made her aware that Dr. Guerrero would like to have a meeting with the family tomorrow at noon. She agreed and spoke with her family. Left message for Dr. Guerrero.
[2020-05-28] MEDS ORDERED: AMINO ACID INFUSION IN D5W 2,000 ML IV NR (20:00)
--- NOTE | 2020-05-28 21:05 | NUR ---
Family: RN spoke with Daughter "Hannah" who has been in constant communication with hospital staff regarding the patient. Daughter was updated on patient condition and situation and current medications. Per daughter, "I have come to peace with what might happen to my father". Chelsey verbalized appreciation of all the medical team has done for the patient and verbalized patient remains a full code but has come to understand patient's critical illness and poor prognosis. Chelsey states she will be here tomorrow at noon for meeting with primary MD to discuss patient's prognosis and medical condition.
--- NOTE | 2020-05-28 23:09 | NUR ---
Dr. Montanez: RN received call from Dr. Montanez. MD was updated on patient's condition. RN is to continue with current medication regimen and morning labs to follow up on patient's H&H.
--- NOTE | 2020-05-28 23:47 | NUR ---
Charlene Patton. made aware of patient condition and situation. Communication order received and implemented.
[2020-05-29] VITALS (90 sets, daily range): BP systolic 86–156; BP diastolic 34–54
[2020-05-29] MEDS: FUROSEMIDE INJECTION 100 MG in D5W 5% 100 ML IV SCH ×7 (00:30→20:22)
[2020-05-29] MEDS: PHENYLEPHRINE IV 250 ML IV SCH ×4 (00:38→13:30)
[2020-05-29] MEDS: PANTOPRAZOLE 40mg/50ML NS AE 50 ML IV SCH ×5 (01:15→21:15)
--- NOTE | 2020-05-29 02:50 | NUR ---
FIO2 increased to 100%: RN and RT noted patient to begin to desaturate to 80% on pulse ox reading, patient was saturating consistently from low 80's to low 90's on his pulse ox. Patient was increased to 100% FIO2 and was noted to begin to saturate in the mid 90's. RN and RT repositioned patient and patient desaturated into the low 80's again. RN will continue to monitor and assess patient. Patient in very critical condition and cannot tolerate turns at this time. Patient currently saturating at 94%.
[2020-05-29] MEDS: SODIUM BICARBONATE 50ML VIAL 150 ML in D5W 5% 1,000 ML IV SCH ×3 (03:50→17:46)
[2020-05-29] MEDS: EPINEPHrine HCL 250 ML IV SCH (04:06)
[2020-05-29 04:28] LABS: Hemoglobin 7.6 g/dL (13.5-17.5)
[2020-05-29 04:30] LABS: Hematocrit 23.3 % (41.0-53.0); Mean Corpuscular Hemoglobin 30.2 pg (28.0-32.0); Mean Corpuscular Hgb Conc. 32.7 g/dL (32.0-36.0); Mean Corpuscular Volume 92.2 fL (80.0-100.0); Platelet Count (auto) 71 10^3/uL (140-450); Red Blood Cells 2.52 10^6/uL (4.5-5.90); Red Cell Distribution Width 16.6 % (11.8-14.3); White Blood Cell 21.7 10^3/uL (4.4-10.8)
[2020-05-29 04:33] LABS: Potassium 4.9 mmol/L (3.5-5.1)
[2020-05-29] MEDS: fentaNYL Drip 2500mCg/250mlNS 250 ML IV SCH (04:37)
[2020-05-29 05:02] LABS: Albumin 1.7 g/dL (3.4-5.0); BUN/Creatinine Ratio 22.3; Bilirubin, Total 0.9 mg/dL (0.2-1.0); Total Protein 3.4 g/dL (6.4-8.2)
[2020-05-29 05:21] LABS: Basophils % (manual) 0 (0.0-2.0); Blast Cells 0; Promyelocytes % 0; Reactive Lymphocytes 0
[2020-05-29 05:26] LABS: INR 1.5 (0.9-1.15); Partial Thromboplastin Time 49.3 sec (23.64-32.05)
--- NOTE | 2020-05-29 06:30 | NUR ---
First blood transfusion started. RN will continue to monitor and assess patient for adverse reactions.
--- NOTE | 2020-05-29 06:50 | NUR ---
Family: Family called, password was verified. Daughter "Hannah" was updated on patient condition and situation. All questions and concerns were answered.
--- NOTE | 2020-05-29 07:10 | NUR ---
RT NOTE: DR ANDERSON CALLED REGARDING CRITICAL ABG RESULTS. MESSAGE LEFT.
--- NOTE | 2020-05-29 07:12 | NUR ---
RT NOTE: HOSPITALIST PAGED REGARDING CRITICAL ABG RESULTS. WAITING FOR RETURN CALL.
[2020-05-29 07:13] LABS: Phosphorus 8.1 mg/dL (2.5-4.90)
[2020-05-29 07:14] LABS: Calcium 5.4 mg/dL (8.5-10.1)
--- NOTE | 2020-05-29 07:18 | NUR ---
RT NOTE: HOSPITALIST PAGED FOR SECOND TIME REGARDING CRITICAL RESULTS. WAITING FOR RETURN CALL.
[2020-05-29 07:21] LABS: Band Neutrophils % (manual) 29; Eosinophils % (manual) 1 (0-7); Lymphocytes % (manual) 11 (10.0-50.0); Metamyelocytes % 6; Monocytes % (manual) 1 (0-12); Myelocytes % 4
--- NOTE | 2020-05-29 08:15 | NUR ---
ASSESSMENT COMPLETED SEE INTERVENTIONS.
--- NOTE | 2020-05-29 08:24 | NUR ---
SPOKE WITH DR ANDERSON REGARDING ABG RESULTS, AWARE FAYE MARIA INCREASED RATE ON VENT TO [address] AND TO OBTAIN ANOTHER ABG AT 0900. GAVE ORDER TO INCREASE RATE TO 24. FAYE MARIA AWARE.
--- NOTE | 2020-05-29 09:00 | NUR ---
RT NOTE: RR INCREASED TO 24. FOLLOW UP ABG IN 1 HOUR. WILL CONTINUE TO MONITOR.
[2020-05-29] MEDS: PANTOPRAZOLE 40 MG/10 ML VIAL INJ IV SCH ×2 (09:25→21:16)
[2020-05-29] MEDS: methIMAzole 5 MG TAB PO SCH (09:29)
[2020-05-29] MEDS ORDERED: CALCIUM GLUC 4.65meq/50ml D5AE 50 ML IV ONE (09:30)
[2020-05-29] MEDS: ERTAPENEM SOD INJ 0.5 GM in SODIUM CHL 0.9% 50 ML IV SCH (10:01)
--- NOTE | 2020-05-29 10:30 | NUR ---
WOUND CARE NOTE: PATIENT IS BEING MONITORED FOR SKIN INTEGRITY BY WOUND CARE TEAM DURING THIS HOSPITALIZATION. CURRENT KANDIS SCORE IS 12. HE CONTINUES TO BE INTUBATED, SEDATED. PATIENT HAS GENERALIZED EDEMA. NO WOUNDS AT THIS TIME. RECOMMEND: UPDATED SKIN/WOUND CARE PLAN, CONTINUATION WITH ALL OTHER WOUND CARE ORDERS PREVIOUSLY PRESCRIBED BY MD. WOUND CARE TEAM WILL CONTINUE TO MONITOR.
[2020-05-29] MEDS: ASCORBIC ACID 500 MG TAB PO SCH (10:48)
--- NOTE | 2020-05-29 11:30 | NUR ---
RECTAL PROBE INSERTED TEMP 100.6, ICE PACKS TO BILATERAL AXILLAE AND GROIN APPLIED FOR COOLING MEASURES WELL FAN TURNED ON. 2ND UNIT PRBC JUST FINISHED. `
--- NOTE | 2020-05-29 12:15 | NUR ---
SPOKE WITH DR BONNER AND DTR SHARON, WILL HAVE MEETING WITH FAMILY AT 2PM TO DISCUSS PLAN OF CARE. UPDATED DTR OVER PHONE ON PATIENT STATUS.
[2020-05-29] MEDS: NOREPINEPHRINE 8 MG/250ML KIT 250 ML IV SCH (14:14)
--- NOTE | 2020-05-29 14:17 | NUR ---
Nutrition Followup Notes Wt: 85.0 kg Pt intubated and sedated per MD note. Pt is covid positive in the covid wing currently NPO Est Energy needs: 7610-7563 kcals (17-20 kcal/kgBW), Est Protein needs: 51-64 gms/day (0.6-0.75 gm/kgBW r/t elevated RFTs). Will continue to monitor and reassess prn. LABS: AST/ALT 3702/4283 H, BUN 120 H, CREAT 5.35 H, CA 5.4 L, ALB 1.7 L GI: Pt had 100 ml BM with 100 ml gastric drainage today per RN doc BS: 12 high risk. Refer to wound assessment report for full details. PES: 1) Increased nutrient needs aeb pt is sedated, intubated, NPO r/t pt with no PO intake 2) Obesity aeb 136% IBW abd BMI of 31.7 kg/m2 r/t energy intake in excess of energy needs 3) Altered nutrition related lab values aeb elev RFTs, low GFR, mod hypoalbuminemia r/t current medical condition Comments Will continue to closely monitor pertinent labs, NPO status, skin status and weight trends. Will f/u in 2-3 days 1) consider alternate nutrition support to meet > 75% of needs. 2) advance diet as medically feaisble. 3) refer to OPD on DC. 3) Continue current plan of care
--- NOTE | 2020-05-29 14:34 | NUR ---
TWO DTRS AT BEDSIDE SHARON AND TASNEEM VISITED PATIENT THROUGH WINDOW/CLOSED DOOR WITH MASKS ON. DR BONNER IN UNIT WELL AND SPOKE WITH DTRS REGARDING POOR PROGNOSIS. DTRS AWARE OF ALL OPTIONS TO KEEP PATIENT FULL CODE, MAKE DNR AND/OR TERMINAL WEAN PATIENT. DTR SHARON SPOKE WITH PATIENT'S WHO IS ADMITTED ON COVID UNIT IN THIS HOSPITAL AND SHE TOLD DTR THERE IS "PAPERWORK STATING HIS WISHES AT HOME". DTRS LEFT FACILITY TO GO GET PAPERWORK AND WILL CALL RN LATER TO DISCUSS POSSIBLE DNR STATUS.
--- NOTE | 2020-05-29 17:20 | NUR ---
DR ANDERSON AT BEDSIDE
[2020-05-29] MEDS: MIDAZOLAM DRIP 50 mg/50mL 50 ML IV SCH (18:39)
--- NOTE | 2020-05-29 19:25 | NUR ---
Resumed care of patient. Patient transferred to ICU room 112.
--- NOTE | 2020-05-29 19:25 | NUR ---
TRANSFERRED IN STABLE CONDITION TO ICU ROOM 112 WITH ALL BELONGINGS AND REPORT GIVEN TO MITESH KUMAR
--- NOTE | 2020-05-29 19:34 | NUR ---
SPOKE WITH CONSTANCE BOATENG AWARE OF TRANSFER TO ICU, STATED SHE WILL CALL MITESH KUMAR AROUND [phone].
[2020-05-29] MEDS ORDERED: CALCIUM GLUC IV NR ×4 (20:00)
[2020-05-29] MEDS ORDERED: [UNRECOGNIZED DRUG - OTHER] IV NR ×4 (20:00)
[2020-05-29] MEDS ORDERED: MAGNESIUM SULF IV NR ×4 (20:00)
[2020-05-29] MEDS ORDERED: MORPHINE SULF INJ 2 MG/ML SYRINGE 1ML IV PRN (20:30)
--- NOTE | 2020-05-29 20:30 | NUR ---
DNR: RN received call from family stating they have come to a conclusion on making patient a DNR after having a family discussion. DNR form signed by Dr. Guerrero and code status changed. Patient is now a DNR. RN will continue to monitor and assess patient. Per daughter Hannah, family will come in tomorrow and possibly have the patient terminal weaned.
[2020-05-29] MEDS: VASOPRESSIN 50 UNITS in D5W 5% 247.5 ML IV SCH (22:45)
[2020-05-30] VITALS (14 sets, daily range): BP systolic 103–142; BP diastolic 52–62
[2020-05-30] MEDS ORDERED: DEXTROSE (50%) 50ML SYRG IV SCH
[2020-05-30] MEDS: FUROSEMIDE INJECTION 100 MG in D5W 5% 100 ML IV SCH ×3 (00:05→06:12)
[2020-05-30] MEDS: PANTOPRAZOLE 40mg/50ML NS AE 50 ML IV SCH (02:15)
[2020-05-30] MEDS: SODIUM BICARBONATE 50ML VIAL 150 ML in D5W 5% 1,000 ML IV SCH (02:50)
[2020-05-30] MEDS: EPINEPHrine HCL 250 ML IV SCH (04:28)
[2020-05-30 04:55] LABS: Hemoglobin 10.5 g/dL (13.5-17.5)
[2020-05-30 04:57] LABS: Mean Corpuscular Hemoglobin 30.4 pg (28.0-32.0); Mean Corpuscular Hgb Conc. 33.9 g/dL (32.0-36.0); Mean Corpuscular Volume 89.7 fL (80.0-100.0); Platelet Count (auto) 50 10^3/uL (140-450); Red Blood Cells 3.45 10^6/uL (4.5-5.90); Red Cell Distribution Width 16.2 % (11.8-14.3); White Blood Cell 12.3 10^3/uL (4.4-10.8)
[2020-05-30 05:14] LABS: Potassium 4.4 mmol/L (3.5-5.1)
[2020-05-30 05:27] LABS: Albumin 1.5 g/dL (3.4-5.0); BUN/Creatinine Ratio 21.8; Basophils % (manual) 0 (0.0-2.0); Bilirubin, Total 1.3 mg/dL (0.2-1.0); Blast Cells 0; Magnesium 1.7 mg/dL (1.6-2.6); Myelocytes % 0; Phosphorus 6.3 mg/dL (2.5-4.90); Promyelocytes % 0; Reactive Lymphocytes 0; Total Protein 3.7 g/dL (6.4-8.2)
[2020-05-30 05:42] LABS: Calcium 5.7 mg/dL (8.5-10.1)
[2020-05-30] MEDS: InsuLIN REG 1unit/0.01ml Soln (100units/ml) SC SCH ×2 (05:51)
[2020-05-30] MEDS: ACCU-CHEK COMFORT CURVE STRIP VI SCH ×2 (05:56)
[2020-05-30] MEDS: PHENYLEPHRINE IV 250 ML IV SCH (07:49)
[2020-05-30 08:26] LABS: Band Neutrophils % (manual) 9; Eosinophils % (manual) 1 (0-7); Lymphocytes % (manual) 10 (10.0-50.0); Metamyelocytes % 2; Monocytes % (manual) 7 (0-12)
--- NOTE | 2020-05-30 08:45 | NUR ---
DR. BONNER PAGED AWAITING CALLBACK
--- NOTE | 2020-05-30 08:58 | NUR ---
FAMILY AT BEDSIDE UPDATED ON PATIENT STATUS. IS CURRENTLY ON COVID UNIT AND ARRANGING FOR TO SEE PATIENT BEFORE TERMINAL CYNDI
--- NOTE | 2020-05-30 09:18 | NUR ---
DR. BONNER UPDATED ON PATIENT STATUS. CONFIRMED WITH SKINNY KUMAR TO TERMINAL WEEN PATIENT PER FAMILY WISHES.
[2020-05-30] MEDS ORDERED: DIGOXIN (250MCG/ML) 2 ML AMPULE IV SCH (10:00)
[2020-05-30] MEDS: PANTOPRAZOLE 40 MG/10 ML VIAL INJ IV SCH (10:11)
[2020-05-30] MEDS: ERTAPENEM SOD INJ 0.5 GM in SODIUM CHL 0.9% 50 ML IV SCH (10:11)
[2020-05-30] MEDS: ASCORBIC ACID 500 MG TAB PO SCH (10:12)
[2020-05-30] MEDS: methIMAzole 5 MG TAB PO SCH (10:12)
[2020-05-30] MEDS ORDERED: MORPHINE SULFATE 4 MG/ML SYR/VIAL IV PRN (10:45)
--- NOTE | 2020-05-30 10:47 | NUR ---
PATIENT TERMINALLY WEENED PER FAMILY WISHES. DAUGHTERS ON UNIT. ABLE TO SEE PATIENT AND NOT AT BEDSIDE
--- NOTE | 2020-05-30 10:58 | NUR ---
ASYSTOLE NO EKG RHYTHM, HEART TONES, LUNG SOUNDS, OR PUPIL RESPONSE
--- NOTE | 2020-05-30 10:58 | NUR ---
DR. AVNDA BENJAMIN
--- NOTE | 2020-05-30 11:13 | NUR ---
[facility] CALLED TO NOTIFY OF PATIENTS
--- NOTE | 2020-05-30 11:25 | NUR ---
DR. BONNER PAGED TO NOTIFY OF PATIENTS
--- NOTE | 2020-05-30 11:51 | NUR ---
DR. DC AT BEDSIDE TO PRONOUNCE PATIENT
--- NOTE | 2020-05-30 11:52 | NUR ---
ANALYTIC PROGRAMMER CALLED TO NOTIFY OF PATIENT
[2020-05-30] MEDS ORDERED: CALCIUM GLUC 4.65meq/50ml D5AE 50 ML IV ONE (12:45)
--- NOTE | 2020-05-30 14:10 | NUR ---
POST MORTEM CARE COMPLETED
[2020-05-30] MEDS ORDERED: MAGNESIUM SULFATE 1GM/100ML 100 ML IV ONE (14:30)
--- NOTE | 2020-05-30 14:42 | NUR ---
[place] [facility] [place]
[2020-05-30] MEDS ORDERED: CLINIMIX PER PHARMACY IV NR (20:00)
== END 2020-05-30 10:58 | disposition expired | DRG 870 ==
LOC: ER 10:44 → EDUNIT# 10:44 → TELE 10:45 → ICU WEST 23:53 → DOU IN ICU 05-23 17:17 → TELE-EAST 05-24 13:25 → DOU IN ICU 05-26 11:35 → ICU WEST 05-29 19:25
PROVIDERS: ADMIT Hospitalist; ATTEND Internal Medicine
PROC: 5A1955Z Respiratory Ventilation, Greater than 96 Consecutive Hours (ICD-10-PCS; principal; 2020-05-14)
PROC: 0BH17EZ Insertion of Endotracheal Airway into Trachea, Via Natural or Artificial Opening (ICD-10-PCS; 2020-05-14)
PROC: 30233K1 Transfusion of Nonautologous Frozen Plasma into Peripheral Vein, Percutaneous Approach (ICD-10-PCS; 2020-05-27)
PROC: 02H633Z Insertion of Infusion Device into Right Atrium, Percutaneous Approach (ICD-10-PCS; 2020-05-27)
PROC: B548ZZA Ultrasonography of Superior Vena Cava, Guidance (ICD-10-PCS; 2020-05-27)
PROC: 5A1945Z Respiratory Ventilation, 24-96 Consecutive Hours (ICD-10-PCS; 2020-05-27)
PROC: 30233N1 Transfusion of Nonautologous Red Blood Cells into Peripheral Vein, Percutaneous Approach (ICD-10-PCS; 2020-05-28)
DX: A41.89 Other specified sepsis (principal); U07.1 COVID-19; J96.01 Acute respiratory failure with hypoxia; R65.21 Severe sepsis with septic shock; N17.0 Acute kidney failure with tubular necrosis; E43 Unspecified severe protein-calorie malnutrition; J12.89 Other viral pneumonia; I21.A1 Myocardial infarction type 2; G93.41 Metabolic encephalopathy; E87.2 Acidosis; E22.2 Syndrome of inappropriate secretion of antidiuretic hormone; N39.0 Urinary tract infection, site not specified; Z99.11 Dependence on respirator [ventilator] status; S36.119A Unspecified injury of liver, initial encounter; E66.9 Obesity, unspecified; R79.89 Other specified abnormal findings of blood chemistry; E05.90 Thyrotoxicosis, unspecified without thyrotoxic crisis or storm; E78.5 Hyperlipidemia, unspecified; E86.0 Dehydration; D49.59 Neoplasm of unspecified behavior of other genitourinary organ; D64.9 Anemia, unspecified; E83.39 Other disorders of phosphorus metabolism; I25.10 Atherosclerotic heart disease of native coronary artery without angina pectoris; I12.9 Hypertensive chronic kidney disease with stage 1 through stage 4 chronic kidney disease, or unspecified chronic kidney disease; N18.2 Chronic kidney disease, stage 2 (mild); X58.XXXA Exposure to other specified factors, initial encounter; I48.91 Unspecified atrial fibrillation; Z66 Do not resuscitate; Z85.46 Personal history of malignant neoplasm of prostate; Z90.79 Acquired absence of other genital organ(s); Z79.899 Other long term (current) drug therapy; Y93.89 Activity, other specified; Y92.89 Other specified places as the place of occurrence of the external cause; Y99.8 Other external cause status; Z68.39 Body mass index [BMI] 39.0-39.9, adult; Z83.3 Family history of diabetes mellitus; Z80.1 Family history of malignant neoplasm of trachea, bronchus and lung; Z80.0 Family history of malignant neoplasm of digestive organs
CPT/HCPCS: 36415; 36600; 71045; 80048; 80053; 80061; 80202; 81001; 82040; 82270; 82550; 82570; 82728; 82805; 82962; 83605; 83615; 83735; 83880; 84100; 84156; 84300; 84443; 84478; 84484; 85007; 85014; 85018; 85025; 85027; 85048; 85379; 85610; 85730; 86141; 86850; 86900; 86901; 86920; 87040; 87070; 87081; 87086; 87205; 87493; 87804; 87880; 92610; 94002; 94003; 96365; 96367; 96375; 97110; 97530; 99291; C9113; G0378; J0171; J0330; J0610; J0696; J1100; J1335; J1815; J2250; J2543; J2704; J3430; J3480; J3490; J7060; P9047